=== PATIENT | female | born 1985 | race Caucasian/White ===

== ENCOUNTER 2016-08-26 14:14 | Emergency (ER) | payer BC, MEDICAID ==
[~2016-08-26] VITALS: Ht 170.2 cm; Wt 77.1 kg
[~2016-08-26 14:14] MED LIST: ADDERALL; AMAN100C18 PO; BUSP5TAB59 PO; CETI10CA PO; CLON0.5T3 PO; CYCL10TA9 PO; FAMO-119 PO; FLT05NA16 NSEACH; HYDR-1231 PO; LEVO500T69 PO; METH4TAB PO; NAPR-243 PO; NAPR-689 PO; NORG1TAB30 PO; ONDN4T PO; PARO40TA2 PO; PHEN200T27 PO; PREN1TAB39 PO; QUET100T32 PO; SMXTMP10ML PO; SULF-222 PO; SULF1TAB7 PO; TRAM-21 PO; TRAM50TA2 PO; TRZ100T PO; [UNRECOGNIZED DRUG - CODE] PO; minipress; plavix PO; seroquel PO
[2016-08-26] MEDS ORDERED: NS IV 1000 ML 1,000 ML IV ONE (14:35)
[2016-08-26 16:11] LABS: BILIRUBIN,URINE NEGATIVE (NEGATIVE); KETONES,URINE NEGATIVE (NEGATIVE); LEUKOCYTE ESTERASE ,URINE NEGATIVE (NEGATIVE); NITRITE,URINE NEGATIVE (NEGATIVE); PH,URINE 7 (5-9); PROTEIN,URINE NEGATIVE (NEGATIVE); UROBILINOGEN,URINE NORMAL (NORMAL)
--- NOTE | 2016-08-26 16:11 | ED GU-Female ---
General Chief Complaint: General Problems/Pain Stated Complaint: DIZZY/LIGHTHEADED POSITIVE PREG TEST Nursing Triage Note: AMB TO ROOM IS PREG UNSURE HOW FAR ALONG SHE IS LMP NARGIS HAS BEEN DIZZY WITH NAUSEA. Nursing Sepsis Screen: No Definite Risk Source: patient Exam Limitations: no limitations History of Present Illness Time seen by provider: 15:45 Initial Comments 31-year-old female patient presents to the emergency department complains of dizziness and nausea 2 days. States she took a test yesterday which was positive, but had approximately 20 tests in the last 2 wks that were negative. Last menstrual period was at the end of June. Denies vaginal bleeding or discharge. Timing/Duration: intermittent, other (2 days) Severity/Quality: moderate Activities at Onset: other Prior Genitourinary Problems: none Sexual Gordo History: less than 2 months ago, single partner Modifying Factors: Worsens With Other (worse with standing from a lying or sitting position) Allergies and Home Medications Allergies Coded Allergies: venlafaxine (Verified Allergy, Mild, 07/23/14) Penicillins (Verified Allergy, Unknown, 01/30/08) Home Medications Nitrofurantoin Monohyd/M-Cryst 100 Mg Capsule #6 1 TAB PO BID Prescribed by: CAROLA MCGUIRE on 08/26/16 8743 Constitutional: No chills, No diaphoresis, dizzinessNo fever, No malaise EENTM: no symptoms reported Respiratory: no symptoms reported Cardiovascular: no symptoms reported Gastrointestinal: No abdominal pain, No constipation, No diarrhea, No hematemesis, loss of appetiteNo melena, nauseaNo vomiting Genitourinary: see HPIdenies burning, denies discharge, denies dysuria, denies frequency, denies flank pain, denies hematuria, denies pain : Yes Musculoskeletal: no symptoms reported Skin: no symptoms reported Psychiatric/Neurological: Denies Headache, Denies Numbness, Denies Paresthesia , Denies Tingling, Denies Weakness All Other Systemes Reviewed Negative Unless Noted: Yes (Negative excepted noted.) Past Oufdtrf-Axtsjq-Zurnrc Hx Patient Social History Alcohol Use: Denies Use Recreational Drug Use: No Smoking Status: Never a Smoker Recent Foreign Travel: No Contact w/Someone Who Travel: No Recent Infectious Disease Expo: No Recent Hopitalizations: Yes (CHILDBIRTH) Immunizations Up To Date Tetanus Booster (TDap): Less than 5yrs Seasonal Allergies Seasonal Allergies: No Surgeries HX Surgeries: Yes (DENTAL EXTRACTIONS, RIGHT FOOT SURGERY X 2) Surgeries: Section, Gallbladder, Orthopedic Respiratory Hx Respiratory Disorders: Yes Respiratory Disorders: Asthma Cardiovascular Hx Cardiac Disorders: Yes ("HOLE IN HEART" PER PT) Cardiac Disorders: Syncope Neurological Hx Neurological Disorders: Yes (PT STATES SHE "PASSES OUT ALOT") Neurological Disorders: Concussion, Parkinson's Disease, Traumatic Brain Injury Reproductive System Hx : 4 Hx Para: 3 Hx Total # of Abortions (Spona: 0 Hx Reproductive Disorders: No Sexually Transmitted Disease: No Female Reproductive Disorders: Denies Genitourinary Hx Genitourinary Disorders: No Gastrointestinal Hx Gastrointestinal Disorders: No Musculoskeletal Hx Musculoskeletal Disorders: No Endocrine Hx Endocrine Disorders: No HEENT HX ENT Disorders: No Cancer Hx Cancer: No Psychosocial Hx Psychiatric Problems: Yes Behavioral Health Disorders: ADD/ADHD, Sleep Difficulties, Anxiety, PTSD, Depression Integumentary HX Skin/Integumentary Disorder: No Blood Transfusions Hx Blood Disorders: No Reviewed Nursing Assessment Reviewed/Agree w Nursing PMH: Yes Family Medical History Significant Family History: No Pertinent Family Hx Physical Exam Vital Signs Vital Sign - Last 12Hours 08/26/16 14:26 Temp 98.7 Pulse 84 Resp 18 B/P 130/82 Pulse Ox 98 O2 Delivery Room Air Capillary Refill : Less Than 3 Seconds General Appearance: WD/WN no apparent distress HEENT: PERRL/EOMI pharynx normal Neck: supple normal inspection Cardiovascular: normal peripheral pulses regular rate, rhythm no edema no murmur Respiratory: lungs clear normal breath sounds no respiratory distress Gastrointestinal: normal bowel sounds non tender soft no organomegalyNo distended Back: normal inspection Extremities: normal inspection no pedal edema normal capillary refill 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 no motor/sensory deficits alert normal mood/affect oriented x 3 Skin: normal color warm/dry Progress/Results/Core Measures Results/Orders Lab Results Laboratory Tests Test 08/26/16 16:00 Range/Units Alanine Aminotransferase (ALT/SGPT) 29 0-55 U/L Albumin 3.7 3.2-4.5 G/DL Alkaline Phosphatase 55 40-136 U/L Anion Gap 8 5-14 MMOL/L Aspartate Amino Transf (AST/SGOT) 24 5-34 U/L BUN/Creatinine Ratio 19 Basophils # (Auto) 0.0 0.0-0.1 10^3/uL Basophils (%) (Auto) 1 0-10 % Blood Urea Nitrogen 15 7-18 MG/DL Calcium Level 8.7 8.5-10.1 MG/DL Carbon Dioxide Level 25 21-32 MMOL/L Chloride Level 106 98-107 MMOL/L Creatinine 0.77 0.60-1.30 MG/DL Eosinophils # (Auto) 0.1 0.0-0.3 10^3/uL Eosinophils (%) (Auto) 2 0-10 % Estimat Glomerular Filtration Rate > 60 Free Thyroxine 0.90 0.70-1.48 NG/DL Glucose Level 82 70-105 MG/DL Hematocrit 38 35-52 % Hemoglobin 13.2 11.5-16.0 G/DL Human Chorionic Gonadotropin, Quant 1496 H <5 MIU/ML Lymphocytes # (Auto) 1.8 1.0-4.0 X 10^3 Lymphocytes (%) (Auto) 28 12-44 % Mean Corpuscular Hemoglobin 30 25-34 PG Mean Corpuscular Hemoglobin Concent 35 32-36 G/DL Mean Corpuscular Volume 86 80-99 FL Mean Platelet Volume 9.3 7.4-10.4 FL Monocytes # (Auto) 0.7 0.0-1.0 X 10^3 Monocytes (%) (Auto) 11 0-12 % Neutrophils # (Auto) 3.8 1.8-7.8 X 10^3 Neutrophils (%) (Auto) 59 42-75 % Platelet Count 238 130-400 10^3/uL Potassium Level 3.5 L 3.6-5.0 MMOL/L Red Blood Count 4.37 4.35-5.85 10^6/uL Red Cell Distribution Width 13.5 10.0-14.5 % Serum Alcohol < 10 <10 MG/DL Sodium Level 139 135-145 MMOL/L TSH [place] Testing 0.26 L 0.35-4.94 UIU/ML Total Bilirubin 0.5 0.1-1.0 MG/DL Total Protein 6.4 6.4-8.2 G/DL Ur Tricyclic Antidepressants Screen NEGATIVE NEGATIVE Urine Amorphous Sediment LARGE STEPHANIE URATES H /LPF Urine Amphetamines Screen POSITIVE H NEGATIVE Urine Bacteria FEW H /HPF Urine Barbiturates Screen NEGATIVE NEGATIVE Urine Benzodiazepines Screen NEGATIVE NEGATIVE Urine Bilirubin NEGATIVE NEGATIVE Urine Cannabinoids Screen NEGATIVE NEGATIVE Urine Casts NONE /LPF Urine Clarity SLIGHTLY CLOUDY Urine Cocaine Screen NEGATIVE NEGATIVE Urine Color YELLOW Urine Crystals NONE /LPF Urine Culture Indicated NO Urine Glucose (UA) NEGATIVE NEGATIVE Urine Ketones NEGATIVE NEGATIVE Urine Leukocyte Esterase NEGATIVE NEGATIVE Urine Methadone Screen NEGATIVE NEGATIVE Urine Methamphetamines Screen NEGATIVE NEGATIVE Urine Mucus NEGATIVE /LPF Urine Nitrite NEGATIVE NEGATIVE Urine Opiates Screen NEGATIVE NEGATIVE Urine Oxycodone Screen NEGATIVE NEGATIVE Urine Phencyclidine Screen NEGATIVE NEGATIVE Urine Propoxyphene Screen NEGATIVE NEGATIVE Urine Protein NEGATIVE NEGATIVE Urine RBC NONE /HPF Urine RBC (Auto) NEGATIVE NEGATIVE Urine Specific [place] 1.015 L 1.016-1.022 Urine Squamous Epithelial Cells 5-10 /HPF Urine Urobilinogen NORMAL NORMAL MG/DL Urine WBC 0-2 /HPF Urine pH 7 5-9 White Blood Count 6.5 4.3-11.0 10^3/uL My Orders Orders-CAROLA MCGUIRE Alcohol (08/26/16 14:35) Cbc With Automated Diff (08/26/16 14:35) Comprehensive Metabolic Panel (08/26/16 14:35) Drug Screen Stat (Urine) (08/26/16 14:35) Thyroid Analyzer (08/26/16 14:35) Ua Culture If Indicated (08/26/16 14:35) Saline Lock/Iv-Start (08/26/16 14:35) Ekg Tracing (08/26/16 14:35) Ns Iv 1000 Ml (Sodium Chloride 0.9%) (08/26/16 14:35) Hcg,Quantitative (08/26/16 16:11) Free T4 (Free Thyroxine) (08/26/16 16:00) Medications Given in ED Current Medications Medications Dose Ordered Sig/Zoey Route Start Time Stop Time Status Last Admin Dose Admin Sodium Chloride 1,000 ml @ 0 mls/hr Q0M ONCE IV 08/26/16 14:35 08/26/16 14:37 DC 08/26/16 16:07 1,000 MLS/HR Vital Signs/I&O Vital Sign - Last 12Hours 08/26/16 08/26/16 14:26 17:59 Temp 98.7 Pulse 84 86 Resp 18 18 B/P 130/82 Pulse Ox 98 98 O2 Delivery Room Air Intake and Output 08/27/16 00:00 Intake Total 1000 ml Balance 1000 ml Blood Pressure Mean: 98 ECG Initial ECG Impression Date: Aug 26, 2016 Initial ECG Impression Time: 15:16 Initial ECG Rate: 78 Initial ECG Rhythm: Normal Sinus Initial ECG Intervals: Normal Initial ECG Impression: Normal Initial ECG Comparisson: Unchanged Comment Sinus rhythm. No STEMI or arrhythmia noted. ECG reviewed and discussed with Drew Hough MD. Departure Communication Progress Notes Laboratory findings and EKG findings discussed with the patient. Patient reports feeling much better at this time. Denies dizziness. Patient alert and oriented 3, no acute distress. Plan for discharge to home with follow-up as an outpatient with [facility] for recheck, status seeing obstetric care, repeat laboratory testing, and palpation baseline ultrasound. All return precautions were discussed with the patient as described in the discharge instructions of this report. Patient voices understanding and agrees with the treatment plan. Patient ambulated from the emergency department without difficulty. Patient case discussed with Drew Hough MD. He agrees with the plan of care. Impression Impression: Primary Impression: Dizziness Additional Impressions: Qualified Code: Z3A.01 - Less than 8 weeks gestation of Abnormal thyroid function test Disposition: HOME, SELF-CARE Condition: Improved Departure-Patient Inst. Decision time for Depature: 16:47 Referrals: [facility]) Primary Care Physician Patient Instructions: Amphetamine, Nutrition Before and During , Symptoms Add. Discharge Instructions: All discharge instructions reviewed with patient and/or family. Voiced understanding. Drink plenty of fluids. Tylenol [id number] as needed for headache or pain. Follow-up with Ruth Todd APRN at [facility] for recheck, repeat labs, and to establish obstetrical care. Call tomorrow morning for appointment time. Return to the emergency department for worsened dizziness, fever, headache, chest pain, vomiting, decreased urination, or any other concerns. Scripts Nitrofurantoin Monohyd/M-Cryst (Macrobid 100 mg Capsule)100 Mg Capsule1 Tab PO BID #6 CAP Ref 0 Prov:CAROLA MCGUIRE 08/26/16 Work/School Note: Work Release Form Date Seen in the Emergency Department: Aug 26, 2016 Return to Work: Aug 28, 2016 CAROLA MCGUIRE Aug 26, 2016 16:11
[2016-08-26 16:12] LABS: BASOPHILS % (AUTO) 1 % (0-10); EOSINOPHILS # (AUTO) 0.1 10^3/uL (0.0-0.3); EOSINOPHILS % (AUTO) 2 % (0-10); LYMPHOCYTES # (AUTO) 1.8 X 10^3 (1.0-4.0); LYMPHOCYTES % (AUTO) 28 % (12-44); MEAN CORPUSCULAR HEMOGLOBIN 30 PG (25-34); MEAN CORPUSCULAR HGB CONC 35 G/DL (32-36); MEAN CORPUSCULAR VOLUME 86 FL (80-99); MEAN PLATELET VOLUME 9.3 FL (7.4-10.4); MONOCYTES # (AUTO) 0.7 X 10^3 (0.0-1.0); MONOCYTES % (AUTO) 11 % (0-12); NEUTROPHILS # (AUTO) 3.8 X 10^3 (1.8-7.8); NEUTROPHILS % (AUTO) 59 % (42-75); PLATELET COUNT 238 10^3/uL (130-400); RED BLOOD COUNT 4.37 10^6/uL (4.35-5.85); RED CELL DISTRIBUTION WIDTH 13.5 % (10.0-14.5); WHITE BLOOD COUNT 6.5 10^3/uL (4.3-11.0)
[2016-08-26 16:26] LABS: WBC,URINE 0-2 /HPF
[2016-08-26 16:33] LABS: ALANINE AMINOTRANSFERASE 29 U/L (0-55); ALBUMIN 3.7 G/DL (3.2-4.5); ANION GAP 8 MMOL/L (5-14); ASPARTATE AMINO TRANSFERASE 24 U/L (5-34); BILIRUBIN,TOTAL 0.5 MG/DL (0.1-1.0); BLOOD UREA NITROGEN 15 MG/DL (7-18); BUN/CREATININE RATIO 19; CALCIUM 8.7 MG/DL (8.5-10.1); CARBON DIOXIDE 25 MMOL/L (21-32); CHLORIDE 106 MMOL/L (98-107); CREATININE SERUM 0.77 MG/DL (0.60-1.30); GFR ESTIMATED > 60; GLUCOSE 82 MG/DL (70-105); POTASSIUM 3.5 MMOL/L (3.6-5.0); SODIUM 139 MMOL/L (135-145); TOTAL PROTEIN 6.4 G/DL (6.4-8.2)
[2016-08-26 16:35] LABS: ALCOHOL < 10 MG/DL (<10)
[2016-08-26] MEDS ORDERED: NITR-65 PO (17:53)
[2016-08-26 17:59] VITALS: BP 138/75
== END 2016-08-26 17:59 | disposition home or self-care (01) ==
LOC: EDUNIT# 14:14 → ER 14:17
DX: R42 Dizziness and giddiness (principal); Z32.01 Encounter for pregnancy test, result positive; Z3A.01 Less than 8 weeks gestation of pregnancy; R94.6 Abnormal results of thyroid function studies
CPT/HCPCS: 36415; 80053; 80306; 80320; 81000; 84439; 84443; 84702; 85025; 93005; 96360

== ENCOUNTER → 2016-09-14 | Outpatient (CLI) | payer MEDICAID ==
[~2016-09-14] MED LIST changes: +NITR-65 PO
--- NOTE | 2016-09-14 16:10 | Diagnostic Imaging Report ---
First trimester OB ultrasound. INDICATION: Dating. FINDINGS: There is a normal-appearing single intrauterine . An embryo is seen with cardiac activity at 146 beats per minute. The crown-rump length is at 7 weeks and 4 days. ANISH is 04/29/17. The left ovary appears unremarkable. The right ovary is obscured by bowel gas. IMPRESSION: Live single intrauterine . Dictated by: Dictated on workstation # [id number]
== END ==
LOC: RAD 15:34
PROVIDERS: ATTEND Family Medicine
DX: Z34.81 Encounter for supervision of other normal pregnancy, first trimester (principal)
CPT/HCPCS: 76801

== ENCOUNTER → 2016-12-11 | Outpatient (CLI) | payer MEDICAID ==
--- NOTE | 2016-12-11 13:44 | Diagnostic Imaging Report ---
INDICATION: OB ultrasound for dates. TECHNIQUE: Multiple real-time grayscale images were obtained over the gravid uterus. COMPARISON: 09/14/2016 FINDINGS: There is a single live intrauterine fetus which is currently transverse with head to maternal right. Fetus is active. heart beat of 147 beats per minute. Placenta is posterior with no evidence of abruption or previa. The amniotic fluid index is normal. anatomical survey is normal. Biometrical measurements are as follows: Biparietal 4.6 cm, age 20 weeks 0 days. Head circumference 17.8 cm, age 20 weeks 3 days. Abdominal circumference 16.2 cm, age 21 weeks 3 days. Femur length 3.4 cm, age 20 weeks 6 days. Sonographic estimate age: 20 weeks 5 days. Sonographic estimated date of delivery: 04-25-17. Estimated Weight: 387 gm (+/- 57 gm). LMP percentile: 86%. heart rate: 147 beats per minute. number: 1 of 1. IMPRESSION: 1. The fetus is currently average for 20 weeks 5 days live intrauterine by biometric measurements. Previous ultrasound indicates 20 weeks 1 day gestation. There has been normal growth in the interim. 2. No abnormality is demonstrated. Dictated by: Dictated on workstation # [id number]
== END ==
LOC: RAD 11:53
PROVIDERS: ATTEND Family Medicine
DX: Z36 Encounter for antenatal screening of mother (principal); Z3A.20 20 weeks gestation of pregnancy
CPT/HCPCS: 76805

== ENCOUNTER 2016-12-31 12:51 | Emergency (ER) | payer OTHER, MEDICAID ==
[~2016-12-31] VITALS: Ht 170.2 cm; Wt 77.1 kg
--- OUTSIDE RECORDS SUMMARY | 2016-12-31 12:58 | XMS REPORT ---
Author Author [facility] Organization eClinical[employer] Address Unknown Phone Unavailable Care Team Providers Care Designer Writer Name Role Phone [facility] CP Unavailable Allergies No Known Allergies Problems Problem Type Condition ICD-9 Code Onset Dates Condition Status Problem Encounter for long-term (current) use of other medications V58.69 Active Problem Insomnia, unspecified 780.52 Active Problem Depressive disorder, not elsewhere classified 311 Active Assessment Post traumatic stress disorder (PTSD) 309.81 Active Medications No Known Medications Procedures Procedure Coding System Code Date CARE COORDINATION CPT-4 S0281 Feb 26, 2015 Results No Known Results Summary Purpose eClinicalWorks Submission
--- OUTSIDE RECORDS SUMMARY | 2016-12-31 12:58 | XMS REPORT ---
Author Author SHELBY MIRAMONTES Organization [facility] Address [address] [place] [address] Care Team Providers Care Egg Smeller Name Role Phone SHELBY MIRAMONTES Unavailable PROBLEMS Type Condition ICD9-CM Code CQL94-OZ Code Onset Dates Condition Status SNOMED Code Assessment Acute pansinusitis, recurrence not specified J01.40 Feb, Active 2792131 Problem Umbilical hernia K42.9 Active 184954725 Problem Anxiety F41.9 Active 73813162 Problem Overweight E66.3 Active 681364727 Problem Dyshidrosis L30.1 Active 186363271 Problem Depressive disorder F32.9 Active 51213016 Problem Insomnia, unspecified G47.00 Active 681991208 ALLERGIES Substance Reaction Event Type Date Status Penicillin V Potassium Unknown Drug Allergy Feb, Active Effexor Unknown Drug Allergy Feb, Active Detergents And Soaps Unknown Non Drug Allergy Feb, Active SOCIAL HISTORY No smoking Hx information available PLAN OF CARE VITAL SIGNS Height 68 in 2016-03-03 Weight 178.4 lbs 2016-03-03 Heart Rate 84 bpm 2016-03-03 Respiratory Rate 20 2016-03-03 BMI 27.12 kg/m2 2016-03-03 Blood pressure systolic 114 mmHg 2016-03-03 Blood pressure diastolic 64 mmHg 2016-03-03 MEDICATIONS Medication Instructions Dosage Frequency Start Date End Date Duration Status Flonase 50 MCG/ACT Nasally Once a day 1 spray in each nostril 24h 24 Feb, 2015 30 day(s) Active Clobetasol Propionate 0.05 % Externally Twice a day 1 application to affected area 12h 10 May, 2015 Active Diclofenac Sodium 75 MG Orally 2 times a day 1 tablet 12h Active BusPIRone HCl 10 mg Orally Twice a day prn anxiety 1 tablet Active Fluticasone Propionate 50 MCG/ACT Nasally Once a day 1-2 spray in each nostril 24h 13 Feb, 2016 7 days Active Cyclobenzaprine HCl 10 mg Orally once a day prn 1 tablet Active Bactrim DS 800-160 MG Orally Twice a day 1 tablet 12h 13 Feb, 2016Feb 10 day(s) Active RESULTS No Results PROCEDURES Procedure Date Ordered Related Diagnosis Body Site Office Visit, Est Pt., Level 3 Mar 03, 2016 IMMUNIZATIONS No Known Immunizations
--- OUTSIDE RECORDS SUMMARY | 2016-12-31 12:58 | XMS REPORT ---
Author Author GAYLE RICO [facility] eClinicalWorks Address Unknown Phone Unavailable Care Team Providers Care Diagram Clerk Name Role Phone GAYLE RICO Unavailable Allergies, Adverse Reactions, Alerts Substance Reaction Event Type Penicillin V Potassium Info Not Available Drug Allergy Effexor Info Not Available Drug Allergy Detergents And Soaps Info Not Available Non Drug Allergy Problems Problem Type Condition Code Onset Dates Condition Status Problem Encounter for long-term (current) use of other medications V58.69 Active Problem Insomnia, unspecified 780.52 Active Problem Depressive disorder, not elsewhere classified 311 Active Assessment Bronchitis 490 Active Assessment Otitis media, right 382.9 Active Medications Medication Code System Code Instructions Start Date End Date Status Dosage Levaquin [facility] [address]-44 500 MG Orally Once a day Mar 19, 2015 Mar 29, 2015 1 tablet Promethazine-Codeine [facility] [address]-37 6.25-10 MG/5ML Orally every 6 hrs prn Mar 19, 2015 5 ml as needed Ortho-Cyclen (28) [facility] [address]-81 0.25-35 MG-MCG Orally Once a day December 04, 2014 1 tablet Cyclobenzaprine HCl [facility] [address]-90 10 MG Orally Once a day at hs Apr 29, [address] [facility] [address]-56 40 MG Orally Once a day 1 tablet in the morning Flonase [facility] [address]-92 50 MCG/ACT Nasally Once a day Mar 14, 2015 1 spray in each nostril Seroquel [facility] [address]-51 100 MG Orally Once a day 1.0 tablet at bedtime Amantadine HCl [facility] [address]-21 100 MG Orally Twice a day 1 tablet Diclofenac Sodium [facility] [address]-88 75 MG Orally 2 times a day 1 tablet Trazodone HCl [facility] [address]-09 100 MG Orally Once a day 1 tablet at bedtime BusPIRone HCl [facility] [address]-03 10 MG Orally Twice a day 1 tablet Phentermine HCl [facility] [address]-88 37.5 MG Orally Once a day 1 tablet Procedures Procedure Coding System Code Date THER/PROPH/DIAG INJ, SC/IM CPT-4 04615 Mar 19, 2015 Office Visit, Est Pt., Level 3 CPT-4 50042 Mar 19, 2015 ROCEPHIN 1 GM (IM) CPT-4 J0696 Mar 19, 2015 Vital Signs Date/Time: Mar 19, 2015 Temperature 97.6 F Weight 180.4 lbs Height 68 in BMI 27.43 Index Blood Pressure Diastolic 68 mmHg Blood Pressure Systolic 100 mmHg Cardiac Monitoring Heart Rate 78 bpm Results No Known Results Summary Purpose eClinicalWorks Submission
--- OUTSIDE RECORDS SUMMARY | 2016-12-31 12:58 | XMS REPORT ---
Author Author GAYLE RICO [facility] eClinicalWorks Address Unknown Phone Unavailable Care Team Providers Care Wrestling Coach Name Role Phone GAYLE RICO CP Unavailable Allergies, Adverse Reactions, Alerts Substance Reaction Event Type Penicillin V Potassium Info Not Available Drug Allergy Effexor Info Not Available Drug Allergy Detergents And Soaps Info Not Available Non Drug Allergy Problems Problem Type Condition Code Onset Dates Condition Status Problem Insomnia, unspecified G47.00 Active Problem Overweight E66.3 Active Problem Depressive disorder F32.9 Active Problem Dyshidrosis L30.1 Active Assessment Overweight E66.3 Active Medications Medication Code System Code Instructions Start Date End Date Status Dosage Clobetasol Propionate [facility] [address]-90 0.05 % Externally Twice a day May 30, 2015 1 application to affected area Diclofenac Sodium [facility] [address]-79 75 MG Orally 2 times a day 1 tablet Diethylpropion HCl ER [facility] [address]-08 75 MG Orally Once a day Jul 02, 2015 Jul 30, 2015 1 tablet Flonase [facility] [address]-05 50 MCG/ACT Nasally Once a day Mar 14, 2015 1 spray in each nostril Paxil [facility] [address]-79 40 MG Orally Once a day 1 tablet in the morning BusPIRone HCl [facility] [address]-95 10 MG Orally Twice a day 1 tablet Procedures Procedure Coding System Code Date Office Visit, Est Pt., Level 3 CPT-4 34624 Jul 02, 2015 Vital Signs Date/Time: Jul 02, 2015 Temperature 98.6 F Weight 176.8 lbs Height 68 in BMI 26.88 Index Blood Pressure Diastolic 72 mmHg Blood Pressure Systolic 110 mmHg Cardiac Monitoring Heart Rate 92 bpm Results No Known Results Summary Purpose eClinicalWorks Submission
--- OUTSIDE RECORDS SUMMARY | 2016-12-31 12:58 | XMS REPORT ---
Author Author [facility] Organization eClinicalWorks Address Unknown Phone Unavailable Care Team Providers Care Burlap Bag Sewer Name Role Phone [facility] CP Unavailable Allergies No Known Allergies Problems Problem Type Condition ICD-9 Code Onset Dates Condition Status Problem Encounter for long-term (current) use of other medications V58.69 Active Problem Insomnia, unspecified 780.52 Active Problem Depressive disorder, not elsewhere classified 311 Active Assessment Post traumatic stress disorder 309.81 Active Medications No Known Medications Procedures Procedure Coding System Code Date [facility] CPT-4 S0280 Feb 14, 2015 Results No Known Results Summary Purpose eClinicalWorks Submission
--- OUTSIDE RECORDS SUMMARY | 2016-12-31 12:58 | XMS REPORT ---
Author Author GAYLE RICO [facility] eClinicalWorks Address Unknown Phone Unavailable Care Team Providers Care Stitcher Special Machine Name Role Phone GAYLE RICO Unavailable Allergies, Adverse Reactions, Alerts Substance Reaction Event Type Penicillin V Potassium Info Not Available Drug Allergy Effexor Info Not Available Drug Allergy Detergents And Soaps Info Not Available Non Drug Allergy Problems Problem Type Condition Code Onset Dates Condition Status Assessment Vaginal discharge N89.8 Active Assessment Eye irritation H57.8 Active Problem Anxiety F41.9 Active Problem Depressive disorder F32.9 Active Problem Umbilical hernia K42.9 Active Problem Dyshidrosis L30.1 Active Assessment Overweight E66.3 Active Problem Insomnia, unspecified G47.00 Active Problem Overweight E66.3 Active Medications Medication Code System Code Instructions Start Date End Date Status Dosage Phentermine HCl [facility] [address]-78 37.5 MG Orally Once a day May 12, 2016 Jun 09, 2016 1 tablet Diflucan [facility] [address]-69 150 MG Orally daily May 12, 2016 May 14, 2016 1 tablet Cyclobenzaprine HCl [facility] [address]-17 10 mg Orally once a day prn 1 tablet Flonase [facility] [address]-94 50 MCG/ACT Nasally Once a day Mar 14, 2015 1 spray in each nostril BusPIRone HCl [facility] [address]-94 10 mg Orally Twice a day prn anxiety 1 tablet Aspercreme w/Lidocaine [facility] 39066-14827 4 % Externally 4 times a day Mar as directed Ibuprofen [facility] [address]-98 800 MG Orally Three times a day Apr 13, 2016 May 13, 2016 1 tablet TobraDex [facility] [address]-69 0.3-0.1 % Ophthalmic qid May 12, 2016 1 drop into affected eye Procedures Procedure Coding System Code Date [facility] CPT-4 NOBLL May 12, 2016 No Charge CPT-4 68914 May 12, 2016 KIMBROUGH VAG, DNA, DIR PROBE CPT-4 83288 May 12, 2016 Office Visit, Est Pt., Level 4 CPT-4 14934 May 12, 2016 Vital Signs Date/Time: May 12, 2016 Cardiac Monitoring Heart Rate 80 bpm Weight 183 lbs Height 68 in BMI 27.82 Index Blood Pressure Diastolic 62 mmHg Blood Pressure Systolic 98 mmHg Results Name Result Date Reference Range Unit Abnormality Flag TRICHOMONAS (IN HOUSE) ----TRICHOMONAS negative [id number] ----Control + [id number] ----Lot # [id number] ----Exp date [id number] BACTERIAL VAGINOSIS (IN HOUSE) ----Exp date [id number] ----Control + [id number] ----Lot # [id number] ----RESULTS negative [id number] Summary Purpose eClinicalWorks Submission
--- OUTSIDE RECORDS SUMMARY | 2016-12-31 12:58 | XMS REPORT ---
Author Author GAYLE RICO Organization e[employer] Address Unknown Phone Unavailable Care Team Providers Care Hardwood Floor Refinisher Name Role Phone GAYLE RICO CP Unavailable Allergies No Known Allergies Problems Problem Type Condition Code Onset Dates Condition Status Problem Anxiety F41.9 Active Problem Depressive disorder F32.9 Active Problem Umbilical hernia K42.9 Active Problem Dyshidrosis L30.1 Active Problem Insomnia, unspecified G47.00 Active Problem Overweight E66.3 Active Medications No Known Medications Results No Known Results Summary Purpose eClinicalWorks Submission
--- OUTSIDE RECORDS SUMMARY | 2016-12-31 12:58 | XMS REPORT ---
Author Author GAYLE RICO eClinical[employer] Address Unknown Phone Unavailable Care Team Providers Care Spot Washer Name Role Phone GAYLE RICO Unavailable Allergies, Adverse Reactions, Alerts Substance Reaction Event Type Penicillin V Potassium Info Not Available Drug Allergy Effexor Info Not Available Drug Allergy Detergents And Soaps Info Not Available Non Drug Allergy Problems Problem Type Condition Code Onset Dates Condition Status Problem Dyshidrosis L30.1 Active Problem Depressive disorder, not elsewhere classified 311 Active Problem Overweight E66.3 Active Assessment Overweight E66.3 Active Assessment Dyshidrosis L30.1 Active Problem Encounter for long-term (current) use of other medications V58.69 Active Problem Insomnia, unspecified 780.52 Active Medications Medication Code System Code Instructions Start Date End Date Status Dosage Phentermine HCl [facility] [address]-65 37.5 MG Orally Once a day 1 tablet Diclofenac Sodium [facility] [address]-18 75 MG Orally 2 times a day 1 tablet Paxil [facility] [address]-73 40 MG Orally Once a day 1 tablet in the morning Flonase [facility] [address]-19 50 MCG/ACT Nasally Once a day Mar 14, 2015 1 spray in each nostril Ortho-Cyclen (28) [facility] [address]-46 0.25-35 MG-MCG Orally Once a day December 04, 2014 1 tablet Seroquel [facility] [address]-91 100 MG Orally Once a day 1.0 tablet at bedtime Amantadine HCl [facility] [address]-85 100 MG Orally Twice a day 1 tablet BusPIRone HCl [facility] [address]-66 10 MG Orally Twice a day 1 tablet Clobetasol Propionate [facility] [address]-40 0.05 % Externally Twice a day May 30, 2015 1 application to affected area Procedures Procedure Coding System Code Date Office Visit, Est Pt., Level 3 CPT-4 34863 May 30, 2015 Vital Signs Date/Time: May 30, 2015 Temperature 98.0 F Weight 174.1 lbs Height 68 in BMI 26.47 Index Blood Pressure Diastolic 72 mmHg Blood Pressure Systolic 114 mmHg Cardiac Monitoring Heart Rate 82 bpm Results No Known Results Summary Purpose eClinicalWorks Submission
--- OUTSIDE RECORDS SUMMARY | 2016-12-31 12:59 | XMS REPORT ---
Author Author GAYLE RICO [facility] eClinicalWorks Address Unknown Phone Unavailable Care Team Providers Care Clinical Trial Assistant Name Role Phone GAYLE RICO Unavailable Allergies, [...] disorder, not elsewhere classified 311 Active Assessment Overweight E66.3 Active Medications Medication Code System Code Instructions Start Date End Date Status Dosage Diclofenac Sodium [facility] [address]-69 75 MG Orally 2 times a day 1 tablet Ortho-Cyclen (28) [facility] [address]-34 0.25-35 MG-MCG Orally Once a day December 04, 2014 1 tablet Flonase [facility] [address]-41 50 MCG/ACT Nasally Once a day Mar 14, 2015 1 spray in each nostril BusPIRone HCl [facility] [address]-73 10 MG Orally Twice a day 1 tablet Trazodone HCl [facility] [address]-63 100 MG Orally Once a day 1 tablet at bedtime Seroquel [facility] [address]-11 100 MG Orally Once a day 1.0 tablet at bedtime Promethazine-Codeine [facility] [address]-66 6.25-10 MG/5ML Orally every 6 hrs prn Mar 19, 2015 5 ml as needed Phentermine HCl [facility] [address]-11 37.5 MG Orally Once a day 1 tablet Paxil [facility] [address]-10 40 MG Orally Once a day 1 tablet in the morning Procedures Procedure Coding System Code Date Office Visit, Est Pt., Level 3 CPT-4 18859 Apr 30, 2015 Vital Signs Date/Time: Apr 30, 2015 Temperature 98.1 F Weight 179.4 lbs Height 68 in BMI 27.27 Index Blood Pressure Diastolic 64 mmHg Blood Pressure Systolic 104 mmHg Cardiac Monitoring Heart Rate 84 bpm Results No Known Results Summary Purpose eClinicalWorks Submission
--- OUTSIDE RECORDS SUMMARY | 2016-12-31 12:59 | XMS REPORT ---
Author Author [facility], [facility] eClinicalWorks Address Unknown Phone Unavailable Care Team Providers Care Master Cook Name Role Phone [facility], [facility] CP Unavailable Allergies No Known Allergies Problems Problem Type Condition Code Onset Dates Condition Status Problem Insomnia, unspecified G47.00 Active Problem Overweight E66.3 Active Problem Depressive disorder F32.9 Active Problem Dyshidrosis L30.1 Active Assessment Post-traumatic stress disorder, unspecified F43.10 Active Medications No Known Medications Procedures Procedure Coding System Code Date [facility] CPT-4 S0280 Jul 19, 2015 Results No Known Results Summary Purpose eClinicalWorks Submission
--- OUTSIDE RECORDS SUMMARY | 2016-12-31 12:59 | XMS REPORT ---
Author Author [facility], [facility] eClinicalWorks Address Unknown Phone Unavailable Care Team Providers Care Memorial Adviser Name Role Phone [facility], [facility] CP Unavailable Allergies No Known Allergies Problems Problem Type Condition Code Onset Dates Condition Status Problem Encounter for long-term (current) use of other medications V58.69 Active Problem Insomnia, unspecified 780.52 Active Problem Depressive disorder, not elsewhere classified 311 Active Assessment Post-traumatic stress disorder, chronic F43.12 Active Medications No Known Medications Procedures Procedure Coding System Code Date HE[facility] PROMOTION CPT-4 S0280 May 17, 2015 Results No Known Results Summary Purpose eClinicalWorks Submission
--- OUTSIDE RECORDS SUMMARY | 2016-12-31 12:59 | XMS REPORT ---
Author Author GAYLE RICO Organization [employer] Address Unknown Phone Unavailable Care Team Providers Care Line Clearance Foreman Name Role Phone GAYLE RICO CP Unavailable [...] Date End Date Status Dosage Clobetasol Propionate [facility] [address]-45 0.05 % Externally Twice a day May 30, 2015 1 application to affected area Flonase [facility] [address]-80 50 MCG/ACT Nasally Once a day Mar 14, 2015 1 spray in each nostril BusPIRone HCl [facility] [address]-03 10 MG Orally Twice a day 1 tablet Diethylpropion HCl ER [facility] [address]-04 75 MG Orally Once a day Jul 02, 2015 1 tablet Paxil [facility] [address]-40 40 MG Orally Once a day 1 tablet in the morning Diclofenac Sodium [facility] [address]-87 75 MG Orally 2 times a day 1 tablet Procedures Procedure Coding System Code Date Office Visit, Est Pt., Level 3 CPT-4 27884 Aug 01, 2015 Vital Signs Date/Time: Aug 01, 2015 Temperature 98.7 F Weight 181.9 lbs Height 68 in BMI 27.65 Index Blood Pressure Diastolic 70 mmHg Blood Pressure Systolic 122 mmHg Cardiac Monitoring Heart Rate 82 bpm Results No Known Results Summary Purpose eClinicalWorks Submission
--- OUTSIDE RECORDS SUMMARY | 2016-12-31 12:59 | XMS REPORT ---
Author Author GAYLE RICO Organization eClinicalWorks Address Unknown Phone Unavailable Care Team Providers Care Estimator Lumber Name Role Phone GAYLE RICO CP Unavailable [...]
--- OUTSIDE RECORDS SUMMARY | 2016-12-31 12:59 | XMS REPORT ---
Author Author [facility], [facility] eClinicalWorks Address Unknown Phone Unavailable Care Team Providers Care Garage Worker Name Role Phone [facility], [facility] CP Unavailable Allergies No Known Allergies Problems Problem Type Condition Code Onset Dates Condition Status Problem Dyshidrosis L30.1 Active Problem Depressive disorder, not elsewhere classified 311 Active Problem Overweight E66.3 Active Assessment Post-traumatic stress disorder, unspecified F43.10 Active Problem Encounter for long-term (current) use of other medications V58.69 Active Problem Insomnia, unspecified 780.52 Active Medications No Known Medications Procedures Procedure Coding System Code Date HE[facility] PROMOTION CPT-4 S0280 May 30, 2015 Results No Known Results Summary Purpose eClinicalWorks Submission
--- OUTSIDE RECORDS SUMMARY | 2016-12-31 13:00 | XMS REPORT ---
Author Author REYNALDO GUTIERREZ [facility] eClinicalWorks Address Unknown Phone Unavailable Care Team Providers Care Carpenter Mold Name Role Phone REYNALDO GUTIERREZ CP Unavailable Allergies, Adverse Reactions, Alerts Substance Reaction Event Type Penicillin V Potassium Info Not Available Drug Allergy Effexor Info Not Available Drug Allergy Detergents And Soaps Info Not Available Non Drug Allergy Problems Problem Type Condition Code Onset Dates Condition Status Problem Insomnia, unspecified G47.00 Active Problem Overweight E66.3 Active Problem Depressive disorder F32.9 Active Problem Dyshidrosis L30.1 Active Assessment Umbilical hernia K42.9 Active Medications Medication Code System Code Instructions Start Date End Date Status Dosage Cyclobenzaprine HCl [facility] [address]-87 10 MG Orally once a day 1 tablet BusPIRone HCl [facility] [address]-79 10 MG Orally Twice a day 1 tablet Clobetasol Propionate [facility] [address]-77 0.05 % Externally Twice a day May 30, 2015 1 application to affected area Diethylpropion HCl ER [facility] [address]-66 75 MG Orally Once a day 1 tablet Flonase [facility] [address]-39 50 MCG/ACT Nasally Once a day Mar 14, 2015 1 spray in each nostril Diclofenac Sodium [facility] [address]-98 75 MG Orally 2 times a day 1 tablet Procedures Procedure Coding System Code Date Office Visit, Est Pt., Level 2 CPT-4 08792 October 08, 2015 Vital Signs Date/Time: October 08, 2015 Temperature 99.6 F Weight 182.6 lbs Height 68 in BMI 27.76 Index Blood Pressure Diastolic 70 mmHg Blood Pressure Systolic 114 mmHg Cardiac Monitoring Heart Rate 72 bpm Results No Known Results Summary Purpose eClinicalWorks Submission
--- OUTSIDE RECORDS SUMMARY | 2016-12-31 13:00 | XMS REPORT ---
Author Author CHRISTIANO JUDD Organization eClinicalWorks Address Unknown Phone Unavailable Care Team Providers Care Health Care Consultant Name Role Phone CHRISTIANO JUDD CP Unavailable Allergies, Adverse Reactions, Alerts Substance Reaction Event Type Penicillin V Potassium Info Not Available Drug Allergy Effexor Info Not Available Drug Allergy Detergents And Soaps Info Not Available Non Drug Allergy Problems Problem Type Condition Code Onset Dates Condition Status Problem Anxiety F41.9 Active Problem Depressive disorder F32.9 Active Problem Umbilical hernia K42.9 Active Problem Dyshidrosis L30.1 Active Assessment Muscle strain of right shoulder, initial encounter S46.911A Active Problem Insomnia, unspecified G47.00 Active Problem Overweight E66.3 Active Medications Medication Code System Code Instructions Start Date End Date Status Dosage Aspercreme w/Lidocaine [facility] [address] 4 % Externally 4 times a day Mar as directed Flonase [facility] [address]-23 50 MCG/ACT Nasally Once a day Mar 14, 2015 1 spray in each nostril Ibuprofen [facility] [address]-08 800 MG Orally Three times a day Apr 13, 2016 May 13, 2016 1 tablet BusPIRone HCl [facility] [address]-89 10 mg Orally Twice a day prn anxiety 1 tablet Clobetasol Propionate [facility] [address]-40 0.05 % Externally Twice a day May 30, 2015 1 application to affected area Cyclobenzaprine HCl [facility] [address]-03 10 mg Orally once a day prn 1 tablet Procedures Procedure Coding System Code Date Office Visit, Est Pt., Level 3 CPT-4 15037 Apr 13, 2016 Vital Signs Date/Time: Apr 13, 2016 Cardiac Monitoring Heart Rate 62 bpm Weight 183.6 lbs Height 68 in BMI 27.91 Index Blood Pressure Diastolic 70 mmHg Blood Pressure Systolic 114 mmHg Results No Known Results Summary Purpose eClinicalWorks Submission
--- OUTSIDE RECORDS SUMMARY | 2016-12-31 13:00 | XMS REPORT ---
Author Author GAYLE RICO [facility] eClinicalWorks Address Unknown Phone Unavailable Care Team Providers Care Maintenance Scheduler Name Role Phone GAYLE RICO CP Unavailable Allergies, Adverse Reactions, Alerts Substance Reaction Event Type Penicillin V Potassium Info Not Available Drug Allergy Effexor Info Not Available Drug Allergy Detergents And Soaps Info Not Available Non Drug Allergy Problems Problem Type Condition ICD-9 Code Onset Dates Condition Status Problem Encounter for long-term (current) use of other medications V58.69 Active Problem Insomnia, unspecified 780.52 Active Problem Depressive disorder, not elsewhere classified 311 Active Assessment Weight gain 783.1 Active Assessment Back pain 724.5 Active Medications Medication Code System Code Instructions Start Date End Date Status Dosage Diclofenac Sodium [facility] [address]-20 75 MG Orally 2 times a day 1 tablet Trazodone HCl [facility] [address]-93 100 MG Orally Once a day 1 tablet at bedtime Paxil [facility] [address]-30 40 MG Orally Once a day 1 tablet in the morning Cyclobenzaprine HCl [facility] [address]-67 10 MG Orally Once a day at hs Apr 29, 2015 1 tablet Phentermine HCl [facility] [address]-44 37.5 MG Orally Once a day 1 tablet Ortho-Cyclen (28) [facility] [address]-04 0.25-35 MG-MCG Orally Once a day December 04, 2014 1 tablet Seroquel [facility] [address]-73 100 MG Orally Once a day 1.0 tablet at bedtime Amantadine HCl [facility] [address]-96 100 MG Orally Twice a day 1 tablet BusPIRone HCl [facility] [address]-26 10 MG Orally Twice a day 1 tablet Procedures Procedure Coding System Code Date Office Visit, Est Pt., Level 3 CPT-4 02125 Feb 28, 2015 Vital Signs Date/Time: Feb 28, 2015 Temperature 98.6 F Weight 174.4 lbs Height 68 in BMI 26.51 Index Blood Pressure Diastolic 60 mmHg Blood Pressure Systolic 100 mmHg Cardiac Monitoring Heart Rate 72 bpm Results No Known Results Summary Purpose eClinicalWorks Submission
--- OUTSIDE RECORDS SUMMARY | 2016-12-31 13:00 | XMS REPORT ---
Author Author GAYLE RICO [facility] eClinicalWorks Address Unknown Phone Unavailable Care Team Providers Care Varnish Maker Helper Name Role Phone GAYLE RICO Unavailable Allergies, [...] disorder, not elsewhere classified 311 Active Assessment Other obesity due to excess calories E66.09 Active Assessment Low back pain M54.5 Active Medications Medication Code System Code Instructions Start Date End Date Status Dosage Flonase [facility] [address]-51 50 MCG/ACT Nasally Once a day Mar 14, 2015 1 spray in each nostril Amantadine HCl [facility] [address]-31 100 MG Orally Twice a day 1 tablet Diclofenac Sodium [facility] [address]-62 75 MG Orally 2 times a day 1 tablet Trazodone HCl [facility] [address]-77 100 MG Orally Once a day 1 tablet at bedtime Promethazine-Codeine [facility] [address]-86 6.25-10 MG/5ML Orally every 6 hrs prn Mar 19, 2015 5 ml as needed Paxil [facility] [address]-30 40 MG Orally Once a day 1 tablet in the morning Ortho-Cyclen (28) [facility] [address]-91 0.25-35 MG-MCG Orally Once a day December 04, 2014 1 tablet Cyclobenzaprine HCl [facility] [address]-36 10 MG Orally Once a day at hs Apr 29, 2015 1 tablet Phentermine HCl [facility] [address]-28 37.5 MG Orally Once a day 1 tablet BusPIRone HCl [facility] [address]-01 10 MG Orally Twice a day 1 tablet [address] [facility] [address]-56 500 MG Orally Once a day Mar 19, 2015 Mar 29, 2015 1 [address]eroquel [facility] [address]-24 100 MG Orally Once a day 1.0 tablet at bedtime Procedures Procedure Coding System Code Date Office Visit, Est Pt., Level 3 CPT-4 42140 Mar 28, 2015 Vital Signs Date/Time: Mar 28, 2015 Temperature 99.2 F Weight 178.1 lbs Height 68 in BMI 27.08 Index Blood Pressure Diastolic 62 mmHg Blood Pressure Systolic 118 mmHg Cardiac Monitoring Heart Rate 92 bpm Results No Known Results Summary Purpose eClinicalWorks Submission
--- OUTSIDE RECORDS SUMMARY | 2016-12-31 13:00 | XMS REPORT ---
Author Author DAYSI SWANSON eClinicalWorks Address Unknown Phone Unavailable Care Team Providers Care Client Experience Administrator Name Role Phone DAYSI SWANSON Unavailable Allergies, Adverse Reactions, Alerts Substance Reaction Event Type Penicillin V Potassium Info Not Available Drug Allergy Effexor Info Not Available Drug Allergy Detergents And Soaps Info Not Available Non Drug Allergy Problems Problem Type Condition Code Onset Dates Condition Status Assessment Routine screening for STI (sexually transmitted infection) Z11.3 Active Assessment Unprotected sexual intercourse Z72.51 Active Problem Insomnia, unspecified G47.00 Active Problem Overweight E66.3 Active Problem Depressive disorder F32.9 Active Assessment Oral contraceptive pill surveillance Z30.41 Active Assessment Encounter for counseling regarding contraception Z30.9 Active Problem Dyshidrosis L30.1 Active Assessment Irregular menses N92.6 Active Medications Medication Code System Code Instructions Start Date End Date Status Dosage BusPIRone HCl [facility] [address]-19 10 MG Orally Twice a day 1 tablet Paxil [facility] [address]-80 40 MG Orally Once a day 1 tablet in the morning Phentermine HCl [facility] [address]-89 37.5 MG Orally Once a day 1 tablet Diclofenac Sodium [facility] [address]-68 75 MG Orally 2 times a day 1 tablet Flonase [facility] [address]-53 50 MCG/ACT Nasally Once a day Mar 14, 2015 1 spray in each nostril Clobetasol Propionate [facility] [address]-58 0.05 % Externally Twice a day May 30, 2015 1 application to affected area Procedures Procedure Coding System Code Date CHORIONIC GONADOTROPIN TEST CPT-4 68314 Jun 24, 2015 No Charge CPT-4 07699 Jun 24, 2015 URINE TEST CPT-4 29363 Jun 24, 2015 Office Visit, Est Pt., Level 3 CPT-4 69666 Jun 24, 2015 TRICHOMONAS ASSAY W/OPTIC CPT-4 55324 Jun 24, 2015 VENIPUNCT, ROUTINE* CPT-4 16702 Jun 24, 2015 Vital Signs Date/Time: Jun 24, 2015 Temperature 98.8 F Weight 179.7 lbs Height 68 in BMI 27.32 Index Blood Pressure Diastolic 74 mmHg Blood Pressure Systolic 128 mmHg Cardiac Monitoring Heart Rate 88 bpm Results Name Result Date Reference Range Unit Abnormality Flag ROUTINE VENIPUNCTURE TEST, URINE (IN HOUSE) ----RESULTS Negative [id number] ----Lot # [id number] ----Control + [id number] ----Exp date [id number] TRICHOMONAS (IN HOUSE) ----Exp date [id number] ----Control + [id number] ----Lot # [id number] ----TRICHOMONAS negative [id number] Summary Purpose eClinicalWorks Submission
--- OUTSIDE RECORDS SUMMARY | 2016-12-31 13:01 | XMS REPORT | Continuity of Care Document ---
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 NRG Urine pH measurement by test strip 7 5- 9 Specific gravity of urine by test strip 1.015 1.016-1.022 Urine protein assay by test strip, semi-quantitative NEGATIVE NEGATIVE Urine glucose detection by automated test strip NEGATIVE NEGATIVE Erythrocytes detection in urine sediment by light microscopy NEGATIVE NEGATIVE Urine ketones detection by automated test strip NEGATIVE NEGATIVE Urine nitrite detection by test strip NEGATIVE NEGATIVE Urine total bilirubin detection by test strip NEGATIVE NEGATIVE Urine urobilinogen measurement by automated test strip (mass/volume) NORMAL NORMAL Urine leukocyte esterase detection by dipstick NEGATIVE NEGATIVE Automated urine sediment erythrocyte count by microscopy (number/high power field) NONE NRG Automated urine sediment leukocyte count by microscopy (number/high power field ) [HPF] NRG Bacteria detection in urine sediment by light microscopy FEW NRG Squamous epithelial cells detection in urine sediment by light microscopy 5-10 NRG Crystals detection in urine sediment by light microscopy NONE NRG Casts detection in urine sediment by light microscopy NONE NRG Mucus detection in urine sediment by light microscopy NEGATIVE NRG Complete urinalysis with reflex to culture NO NRG Amorphous sediment detection in urine sediment by light microscopy LARGE STEPHANIE URATES NRG Comprehensive metabolic panel - 08/26/16 16:00 Serum or plasma sodium measurement (moles/volume) 139 mmol/ L 135-145 Serum or plasma potassium measurement (moles/volume) 3.5 mmol/L 3.6-5.0 Serum or plasma chloride measurement (moles/volume) 106 mmol /L 98-107 Carbon dioxide 25 mmol/L 21-32 Serum or plasma anion gap determination (moles/volume) 8 mmol/L 5-14 Serum or plasma urea nitrogen measurement (mass/volume) 15 mg/dL 7-18 Serum or plasma creatinine measurement (mass/volume) 0.77 mg /dL 0.60-1.30 Serum or plasma urea nitrogen/creatinine mass ratio 19 NRG Serum or plasma creatinine measurement with calculation of estimated glomerular filtration rate > NRG Serum or plasma glucose measurement (mass/volume) 82 mg/dL 70-105 Serum or plasma calcium measurement (mass/volume) 8.7 mg/dL 8.5-10.1 Serum or plasma total bilirubin measurement (mass/volume) 0.5 mg/dL 0.1-1.0 Serum or plasma alkaline phosphatase measurement (enzymatic activity/volume) 55 U/L 40-136 Serum or plasma aspartate aminotransferase measurement (enzymatic activity/ volume) 24 U/L 5-34 Serum or plasma alanine aminotransferase measurement (enzymatic activity/volume ) 29 U/L 0-55 Serum or plasma protein measurement (mass/volume) 6.4 g/dL 6.4-8.2 Serum or plasma albumin measurement (mass/volume) 3.7 g/dL 3.2-4.5 Serum or plasma thyroxine (T4) free measurement (mass/volume) - 08/26/16 16:00 Serum or plasma thyroxine (T4) free measurement (mass/volume) 0.90 ng/dL 0.70-1.48 Serum or plasma choriogonadotropin measurement (units/volume) - 08/26/16 16:00 Serum or plasma choriogonadotropin measurement (units/volume) 1496 m[iU]/mL <5 Serum or plasma thyrotropin measurement by detection limit <=0.05 miu/l (units/ volume) - 08/26/16 16:00 Serum or plasma thyrotropin measurement by detection limit <=0.05 miu/l (units/ volume) 0.26 u[iU]/mL 0.35-4.94 Serum or plasma ethanol measurement (mass/volume) - 08/26/16 16:00 Serum or plasma ethanol measurement (mass/volume) < mg/dL <10 Encounters ACCT No. Visit Date/Time Discharge Status Pt. Type Provider Facility Loc./Unit Complaint [id number] 09/05/2014 15:57:00 09/05/2014 23: 59:59 CLS Outpatient JIMMIE SCHMIDT APRN [id number] 08/23/2014 00:00:00 08/23/2014 23: 59:59 CLS Outpatient CURTIS ROUSSEAU RN [id number] 07/02/2014 00:00:00 07/02/2014 23: 59:59 CLS Outpatient CURTIS ROUSSEAU RN [id number] 03/06/2014 11:47:00 03/06/2014 23: 59:59 CLS Outpatient JONI LANIER DO [id number] 02/02/2014 13:52:00 02/02/2014 23: 59:59 CLS Outpatient REYNALDO GUTIERREZ MD [id number] 11/30/2013 15:21:00 11/30/2013 23: 59:59 CLS Outpatient JULIEN MAYA APRN [id number] 10/03/2013 18:00:00 10/03/2013 23: 59:59 CLS Outpatient JIMMIE SCHMIDT APRN [id number] 09/09/2013 10:51:00 09/09/2013 23: 59:59 CLS Outpatient JONI LANIER DO [id number] 07/13/2013 14:00:00 07/13/2013 23: 59:59 CLS Outpatient DIPAK CHINCHILLA PHD [id number] 06/27/2013 13:41:00 06/27/2013 23: 59:59 CLS Outpatient DIPAK CHINCHILLA PHD [id number] 04/06/2013 11:03:00 04/06/2013 23: 59:59 CLS Outpatient JONI LANIER DO [id number] 03/08/2013 11:34:00 03/08/2013 23: 59:59 CLS Outpatient JONI LANIER DO [id number] 08/31/2012 18:02:00 08/31/2012 23: 59:59 CLS Outpatient JONI LANIER DO [id number] 06/10/2012 09:29:00 06/10/2012 23: 59:59 [facility] Outpatient JONI LANIER DO [id number] 10/27/2012 12:19:00 Document Registration [id number] 10/11/2012 17:15:00 Document Registration
--- NOTE | 2016-12-31 13:26 | ED Integumentary General ---
General Chief Complaint: Trauma-Non Activation Stated Complaint: CHEMICAL BURN RT THIGH Source: patient Exam Limitations: no limitations History of Present Illness Time seen by provider: 13:25 Initial Comments Patient works at [employer]. She spilled a catalyst on her right anterior thigh called methyl ethyl ketone. She rinsed this off with acetone. She then went and took 2 showers. She has erythema and some tenderness to the anterior right leg. She is 6 months . Timing/Duration: just prior to arrival Severity: moderate Associated Symptoms: denies symptoms Allergies and Home Medications Allergies Coded Allergies: venlafaxine (Verified Allergy, Mild, 07/23/14) Penicillins (Verified Allergy, Unknown, 01/30/08) Home Medications Nitrofurantoin Monohyd/M-Cryst 100 Mg Capsule, 1 TAB PO BID, #6 Ref 0 Prescribed by: CAROLA MCGUIRE on 08/26/16 [id number] Constitutional: see HPI EENTM: see HPI Respiratory: no symptoms reported Cardiovascular: no symptoms reported Genitourinary: no symptoms reported Musculoskeletal: no symptoms reported Skin: see HPI Psychiatric/Neurological: No Symptoms Reported Endocrine: No Symptoms Reported Past Tbzpgqa-Tzrmzd-Petgby Hx Patient Social History Recent Foreign Travel: No Contact w/Someone Who Travel: No Recent Hopitalizations: Yes (CHILDBIRTH) Immunizations Up To Date Tetanus Booster (TDap): Less than 5yrs Seasonal Allergies Seasonal Allergies: No Surgeries HX Surgeries: Yes (DENTAL EXTRACTIONS, RIGHT FOOT SURGERY X 2) Surgeries: Section, Gallbladder, Orthopedic Respiratory Hx Respiratory Disorders: Yes Respiratory Disorders: Asthma Cardiovascular Hx Cardiac Disorders: Yes ("HOLE IN HEART" PER PT) Cardiac Disorders: Syncope Neurological Hx Neurological Disorders: Yes (PT STATES SHE "PASSES OUT ALOT") Neurological Disorders: Concussion, Parkinson's Disease, Traumatic Brain Injury Reproductive System Hx Reproductive Disorders: No Sexually Transmitted Disease: No Female Reproductive Disorders: Denies Genitourinary Hx Genitourinary Disorders: No Gastrointestinal Hx Gastrointestinal Disorders: No Musculoskeletal Hx Musculoskeletal Disorders: No Endocrine Hx Endocrine Disorders: No HEENT HX ENT Disorders: No Cancer Hx Cancer: No Psychosocial Hx Psychiatric Problems: Yes Behavioral Health Disorders: ADD/ADHD, Sleep Difficulties, Anxiety, PTSD, Depression Integumentary HX Skin/Integumentary Disorder: No Blood Transfusions Hx Blood Disorders: No Family Medical History Significant Family History: No Pertinent Family Hx Physical Exam Vital Signs Vital Sign - Last 12Hours 12/31/16 13:18 Temp 97.9 Pulse 86 Resp 20 B/P (MAP) 127/76 Pulse Ox 98 O2 Delivery Room Air Capillary Refill : Less Than 3 Seconds General Appearance: WD/WN, no apparent distress HEENT: PERRL/EOMI, normal ENT inspection Neck: non-tender, full range of motion Cardiovascular: regular rate, rhythm, no murmur Respiratory: no respiratory distress, no accessory muscle use Gastrointestinal: non tender, soft Extremities: normal range of motion, non-tender Neurologic/Psychiatric: alert, normal mood/affect, oriented x 3 Skin: other (there is erythema to the right anterior thigh to a large area but without blistering or discoloration of the skin. This does jg.) Skin Problem Location: lower extremities Progress/Results/Core Measures Results/Orders My Orders Orders - ORION PETTIT APRN Bacitracin Ointment (Bacitracin Ointment (12/31/16 21:00) Vital Signs/I&O Vital Sign - Last 12Hours 12/31/16 13:18 Temp 97.9 Pulse 86 Resp 20 B/P (MAP) 127/76 Pulse Ox 98 O2 Delivery Room Air Departure Communication Progress Notes 1327-upon arrival to ER her leg was rinsed off with chlorhexidine/saline solution. Material safety data sheets were obtained for the methyl ethyl ketone and the acetone. Both of which recommend decontamination by rinsing and application of topical antibacterial ointment. The pH of methyl ethyl ketone could not be obtained and is not on the material safety data sheet. Impression Impression: Primary Impression: Chemical burn of skin Disposition: 01 HOME, SELF-CARE Condition: Stable Departure-Patient Inst. Decision time for Depature: 13:28 Referrals: KWAME DAVIS MD (PCP) Primary Care Physician GAYLE RICO (Family) Primary Care Physician Patient Instructions: [place] (DC) Add. Discharge Instructions: 1. Return to ER for any concerns 2. Apply the antibiotic ointment twice daily for the next 3 days 3. All discharge instructions reviewed with patient and/or family. Voiced understanding. ORION PETTIT APRN Dec 31, 2016 13:26
[2016-12-31] MEDS ORDERED: IRON18TA PO (13:43)
[2016-12-31] MEDS ORDERED: VITA100D PO (13:43)
[2016-12-31] MEDS ORDERED: FOLI0.4T2 PO (13:43)
[2016-12-31 14:04] VITALS: BP 127/76
[2016-12-31] MEDS ORDERED: BACITRACIN OINTMENT 28 GM TUBE TOP SCH (21:00)
== END 2016-12-31 14:04 | disposition home or self-care (01) ==
LOC: EDUNIT# 12:51 → ER 12:53
DX: O99.89 Other specified diseases and conditions complicating pregnancy, childbirth and the puerperium (principal); T52.4X1A Toxic effect of ketones, accidental (unintentional), initial encounter; T24.511A Corrosion of first degree of right thigh, initial encounter; Z3A.00 Weeks of gestation of pregnancy not specified; Y92.59 Other trade areas as the place of occurrence of the external cause; Y99.0 Civilian activity done for income or pay
CPT/HCPCS: 99282

== ENCOUNTER 2017-02-22 10:38 | Emergency (ER) | payer MEDICAID ==
[~2017-02-22] VITALS: Ht 170.2 cm; Wt 102.1 kg
[~2017-02-22 10:38] MED LIST changes: +FOLI0.4T2 PO; +IRON18TA PO; +VITA100D PO
[2017-02-22] MEDS ORDERED: predniSONE 20 MG TAB PO ONE (11:45)
--- NOTE | 2017-02-22 11:48 | ED Integumentary General ---
General Chief Complaint: Allergic Reaction Stated Complaint: RASH ALL OVER BODY Nursing Triage Note: pt reports rash starting yesterday. pt reports increase in rash on arms and legs. Source: patient Exam Limitations: no limitations History of Present Illness Time seen by provider: 11:30 Initial Comments Here with report of rash that started yesterday and has increased today. Noted on her arms and upper legs bilaterally as well as around the bra line. Urticarial type. Was on clindamycin for possible spider bite to the right upper thigh that has subsequently healed. Last dose of that was yesterday and rash started afterwards. Was in the sun is weekend. Denies any other contact with anything that would cause allergic reaction. She is 7-1/2 months . She has tried Benadryl is not helping Timing/Duration: yesterday, getting worse Severity: moderate Location: torso, extremities Possible Cause: medications Modifying Factors: improves with antihistamine Associated Symptoms: No fever, No nasal congestion, rash, No swelling/mass/ lumps Allergies and Home Medications Allergies Coded Allergies: venlafaxine (Verified Allergy, Mild, 07/23/14) Penicillins (Verified Allergy, Unknown, 01/30/08) Home Medications Folic Acid 0.4 Mg Tablet, 0.4 MG PO DAILY, (Reported) Iron 18 Mg Tablet, 18 MG PO DAILY, (Reported) Vitamin E Acetate 100 Unit/0.25 Ml Drops, 100 UNIT PO DAILY, (Reported) Constitutional: see HPI, No chills, No fever EENTM: no symptoms reported, No nose congestion, No throat pain Respiratory: No short of breath, No wheezing Cardiovascular: no symptoms reported Gastrointestinal: no symptoms reported Genitourinary: no symptoms reported Expected Date of Delivery: Apr 29, 2017 Musculoskeletal: no symptoms reported Skin: see HPI, pruritus, rash Psychiatric/Neurological: No Symptoms Reported Past Ftbwrho-Bvhxyr-Gpdlln Hx Patient Social History Alcohol Use: Denies Use Recreational Drug Use: No Smoking Status: Never a Smoker Recent Foreign Travel: No Contact w/Someone Who Travel: No Recent Infectious Disease Expo: No Recent Hopitalizations: No Physical Abuse: No Sexual Abuse: No Mistreated: No Immunizations Up To Date Tetanus Booster (TDap): Less than 5yrs Seasonal Allergies Seasonal Allergies: No Surgeries History of Surgeries: Yes (DENTAL EXTRACTIONS, RIGHT FOOT SURGERY X 2) Surgeries: Section, Gallbladder, Orthopedic Respiratory History of Respiratory Disorde: Yes (CHILDHOOD ASTHMA) Respiratory Disorders: Asthma Cardiovascular History of Cardiac Disorders: Yes ("HOLE IN HEART" PER PT) Cardiac Disorders: Syncope Neurological History of Neurological Disord: Yes (PT STATES SHE "PASSES OUT ALOT") Neurological Disorders: Concussion, Parkinson's Disease, Traumatic Brain Injury Reproductive System : Yes Expected Date of Delivery: Apr 29, 2017 Hx Reproductive Disorders: No Sexually Transmitted Disease: No Female Reproductive Disorders: Denies Genitourinary History of Genitourinary Disor: No Gastrointestinal History of Gastrointestinal Di: No Musculoskeletal History of Musculoskeletal Dis: No Endocrine History of Endocrine Disorders: No Cancer History of Cancer: No Psychosocial History of Psychiatric Problem: Yes Behavioral Health Disorders: ADD/ADHD, Sleep Difficulties, Anxiety, PTSD, Depression Suicide Risk Score: 0 Integumentary History of Skin or Integumenta: No Blood Transfusions History of Blood Disorders: No Reviewed Nursing Assessment Reviewed/Agree w Nursing PMH: Yes Family Medical History Significant Family History: No Pertinent Family Hx Physical Exam Vital Signs Vital Sign - Last 12Hours 02/22/17 11:19 Temp 99.0 Pulse 80 Resp 18 B/P (MAP) 141/63 Pulse Ox 97 Capillary Refill : Less Than 3 Seconds General Appearance: WD/WN, no apparent distress Cardiovascular: regular rate, rhythm, no murmur Respiratory: lungs clear, normal breath sounds Gastrointestinal: non tender, soft Extremities: non-tender, normal inspection Neurologic/Psychiatric: alert, oriented x 3 Skin: normal color, warm/dry Skin Problem Character: rash, urticarial Progress/Results/Core Measures Results/Orders My Orders Orders - ARELIS RUVALCABA MD Prednisone Tablet (Deltasone Tablet) (02/22/17 11:45) Vital Signs/I&O Vital Sign - Last 12Hours 02/22/17 11:19 Temp 99.0 Pulse 80 Resp 18 B/P (MAP) 141/63 Pulse Ox 97 Blood Pressure Mean: 89 Progress Note : Progress Note Seen and evaluated. Prednisone 40 mg by mouth. Discharged home with return precautions. Patient verbalize understanding instructions and agreement with plan. Departure Impression Impression: Primary Impression: Allergic reaction caused by a drug Qualified Codes: T78.40XA - Allergy, unspecified, initial encounter Additional Impression: Urticaria due to drug allergy Disposition: 01 HOME, SELF-CARE Condition: Improved Departure-Patient Inst. Decision time for Depature: 11:50 Referrals: KWAME DAVIS MD (PCP) Primary Care Physician GAYLE RICO (Family) Primary Care Physician Patient Instructions: Drug Allergy Add. Discharge Instructions: All discharge instructions reviewed with patient and/or family. Voiced understanding. Take medications as directed. Follow-up with your doctor as scheduled on the seventh. Return for worsening, fever, vomiting, weakness, breathing problems and other concerns as needed. You may take Benadryl 25 mg every 6 hours as needed for itching. Scripts Prednisone (Prednisone) 20 Mg Tab 40 MG PO DAILY, #8 TAB 0 Refills Prov: ARELIS RUVALCABA MD 02/22/17 ARELIS RUVALCABA MD Feb 22, 2017 11:47
[2017-02-22] MEDS ORDERED: PRD20T PO (11:51)
[2017-02-22 11:55] VITALS: BP 128/60
== END 2017-02-22 11:55 | disposition home or self-care (01) ==
LOC: EDUNIT# 10:38 → ER 10:40
DX: O26.893 Other specified pregnancy related conditions, third trimester (principal); L50.0 Allergic urticaria; T36.8X5A Adverse effect of other systemic antibiotics, initial encounter; O99.513 Diseases of the respiratory system complicating pregnancy, third trimester; J45.909 Unspecified asthma, uncomplicated; O99.343 Other mental disorders complicating pregnancy, third trimester; G20 Parkinson's disease; F41.9 Anxiety disorder, unspecified; F43.10 Post-traumatic stress disorder, unspecified; F32.9 Major depressive disorder, single episode, unspecified; F90.9 Attention-deficit hyperactivity disorder, unspecified type; Z3A.30 30 weeks gestation of pregnancy; Z87.820 Personal history of traumatic brain injury; Z87.59 Personal history of other complications of pregnancy, childbirth and the puerperium
CPT/HCPCS: 99283

== ENCOUNTER 2017-04-12 05:28 | Outpatient (CLI) | payer MEDICAID ==
[~2017-04-12] VITALS: Ht 170.2 cm; Wt 102.1 kg
[~2017-04-12 05:28] MED LIST changes: +PRD20T PO
== END 2017-04-12 11:38 ==
LOC: PREOP 05:28
PROVIDERS: ATTEND Obstetrics & Gynecology
DX: Z01.818 Encounter for other preprocedural examination (principal); O34.219 Maternal care for unspecified type scar from previous cesarean delivery; Z3A.00 Weeks of gestation of pregnancy not specified

== ENCOUNTER 2017-04-19 05:56 | Inpatient (IN) | payer MEDICAID ==
[~2017-04-19] VITALS: Ht 170.2 cm; Wt 104.0 kg
[~2017-04-19 05:56] MED LIST changes: +CITRIC ACID/SOB CIT (BICITRA) 30 ML UDC ONE; +FAMOTIDINE 20MG/2ML IV (PEPCID) ONE; +METOCLOPRAMIDE INJ 10 MG/2 ML (REGLAN) ONE; +ceFAZolin 2 GM/50 ML NS 50 ML ONE
[2017-04-19] MEDS ORDERED: LACTATED RINGERS 1,000 ML IV PRN ×2 (06:03)
--- OUTSIDE RECORDS SUMMARY | 2017-04-19 06:04 | XMS REPORT ---
Author Author GAYLE RICO [facility] Address [address] [place] [address] Care Team Providers Care Stage Producer Name Role Phone GAYLE RICO Unavailable PROBLEMS Type Condition ICD9-CM Code [id number] Code Onset Dates Condition Status SNOMED Code Problem Overweight E66.3 Active 044068226 Problem Dyshidrosis L30.1 Active 683139970 Problem Migraine without aura and with status migrainosus, not intractable G43.001 Active 931662478 Problem Arthralgia, unspecified joint M25.50 Active 63838451 Problem Depressive disorder F32.9 Active 24147732 Problem Insomnia, unspecified G47.00 Active 225101795 Problem Umbilical hernia K42.9 Active 018372417 Problem Anxiety F41.9 Active 43479137 ALLERGIES Unknown Allergies SOCIAL HISTORY No smoking Hx information available PLAN OF CARE VITAL SIGNS MEDICATIONS Medication Instructions Dosage Frequency Start Date End Date Duration Status Diflucan 100 MG Orally Once a day 1 tablet 24h Jun, Jun, 07 days Active RESULTS No Results PROCEDURES No Known procedures IMMUNIZATIONS No Known Immunizations
--- OUTSIDE RECORDS SUMMARY | 2017-04-19 06:06 | XMS REPORT ---
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 Name Role Phone GAYLE RICO Unavailable PROBLEMS Type Condition ICD9-CM Code [id number] Code Onset Dates Condition Status SNOMED Code Problem Overweight E66.3 Active 684921180 Problem Dyshidrosis L30.1 Active 152371190 Problem Migraine without aura and with status migrainosus, not intractable G43.001 Active 944009419 Problem Arthralgia, unspecified joint M25.50 Active 93684157 Problem Depressive disorder F32.9 Active 29796885 Problem Insomnia, unspecified G47.00 Active 541901539 Problem Umbilical hernia K42.9 Active 906676775 Problem Anxiety F41.9 Active 53110505 ALLERGIES Substance Reaction Event Type Date Status Penicillin V Potassium Unknown Drug Allergy Jun, Active Effexor Unknown Drug Allergy Jun, Active Detergents And Soaps Unknown Non Drug Allergy Jun, Active SOCIAL HISTORY No smoking Hx information available PLAN OF CARE Activity Details Follow Up 3 Months if desired for weight Reason: VITAL SIGNS Height 68 in 2016-07-16 Weight 167.0 lbs 2016-07-16 Temperature 98.8 degrees Fahrenheit 2016-07-16 Heart Rate 90 bpm 2016-07-16 Respiratory Rate 18 2016-07-16 BMI 25.39 kg/m2 2016-07-16 Blood pressure systolic 128 mmHg 2016-07-16 Blood pressure diastolic 76 mmHg 2016-07-16 MEDICATIONS Medication Instructions Dosage Frequency Start Date End Date Duration Status Aspercreme w/Lidocaine 4 % Externally 4 times a day as directed 6h Mar, Active Flonase 50 MCG/ACT Nasally Once a day 1 spray in each nostril 24h 24 Feb, 2015 30 day(s) Active Ibuprofen 800 MG Orally Three times a day 1 tablet 8h Jun, 30 day(s) Active BusPIRone HCl 10 mg Orally Twice a day prn anxiety 1 tablet Active Cyclobenzaprine HCl 10 mg Orally once a day prn 1 tablet Active Diclofenac Sodium 75 MG TAKE ONE TABLET BY MOUTH TWICE DAILY 30 Active Phentermine HCl 37.5 MG (Schedule IV Drug) TAKE ONE TABLET BY MOUTH ONCE DAILY. 28 Active RESULTS No Results PROCEDURES Procedure Date Ordered Related Diagnosis Body Site Office Visit, Est Pt., Level 3 Jul 16, 2016 IMMUNIZATIONS No Known Immunizations
--- OUTSIDE RECORDS SUMMARY | 2017-04-19 06:06 | XMS REPORT ---
Author Author GAYLE RICO [facility] Address [address] [place] [address] Care Team Providers Care Wheel Borer Name Role Phone GAYLE RICO Unavailable PROBLEMS Type Condition ICD9-CM Code [id number] Code Onset Dates Condition Status SNOMED Code Problem Overweight E66.3 Active 687627948 Problem Dyshidrosis L30.1 Active 241266291 Problem Migraine without aura and with status migrainosus, not intractable G43.001 Active 880867768 Problem Arthralgia, unspecified joint M25.50 Active 09956483 Problem Depressive disorder F32.9 Active 87463303 Problem Insomnia, unspecified G47.00 Active 642588366 Problem Umbilical hernia K42.9 Active 972020019 Problem Anxiety F41.9 Active 43229206 ALLERGIES Substance Reaction Event Type Date Status Penicillin V Potassium Unknown Drug Allergy May, Active Effexor Unknown Drug Allergy May, Active Detergents And Soaps Unknown Non Drug Allergy May, Active SOCIAL HISTORY No smoking Hx information available PLAN OF CARE Activity Details Follow Up 4 Weeks Reason:weight VITAL SIGNS Height 68 in 2016-06-18 Weight 171 lbs 2016-06-18 Temperature 98.9 degrees Fahrenheit 2016-06-18 Heart Rate 90 bpm 2016-06-18 Respiratory Rate 20 2016-06-18 BMI 26.00 kg/m2 2016-06-18 Blood pressure systolic 122 mmHg 2016-06-18 Blood pressure diastolic 60 mmHg 2016-06-18 MEDICATIONS Medication Instructions Dosage Frequency Start Date End Date Duration Status BusPIRone HCl 10 mg Orally Twice a day prn anxiety 1 tablet Active Diflucan 100 MG Orally daily 1 tablet 24h May, Jun, 10 day (s) Active Cyclobenzaprine HCl 10 mg Orally once a day prn 1 tablet Active Aspercreme w/Lidocaine 4 % Externally 4 times a day as directed 6h Mar, Active Flonase 50 MCG/ACT Nasally Once a day 1 spray in each nostril 24h 24 Feb, 2015 30 day(s) Active Phentermine HCl 37.5 MG (Schedule IV Drug) TAKE ONE TABLET BY MOUTH ONCE DAILY. 28 Active Diclofenac Sodium 75 MG TAKE ONE TABLET BY MOUTH TWICE DAILY 30 Active Bactrim DS 800-160 MG Orally Twice a day 1 tablet 12h May, Jun, 5 day(s) Active RESULTS Name Result Date Reference Range UA LONG DIP (IN HOUSE) 2016-06-18 Lot # [id number] Exp date 04/2017 Clarity clear Color madelyn Odor none GLU negative CARMEN 1+ KET negative SG 1.025 BLO negative pH 5.5 Protein negative URO 1.0 NIT negative JOHN trace Lot # Exp date CULTURE, GENITAL 2016-06-18 Genital Culture, Routine Final report Result 1 Yeast isolated. Result 2 PROCEDURES Procedure Date Ordered Related Diagnosis Body Site LAB NOT BILLED BY [facility] Jun 18, 2016 Office Visit, Est Pt., Level 4 Jun 18, 2016 URINALYSIS, AUTO, W/O SCOPE Jun 18, 2016 IMMUNIZATIONS No Known Immunizations
--- OUTSIDE RECORDS SUMMARY | 2017-04-19 06:08 | XMS REPORT ---
Author Author THUY FRANCIS [facility] Address [address] [place] [address] Care Team Providers Care Office Specialist Name Role Phone THUY FRANCIS Unavailable PROBLEMS Type Condition ICD9-CM Code QQS09-OT Code Onset Dates Condition Status SNOMED Code Problem Overweight E66.3 Active 799950544 Problem Dyshidrosis L30.1 Active 754814000 Problem Migraine without aura and with status migrainosus, not intractable G43.001 Active 281484486 Problem Arthralgia, unspecified joint M25.50 Active 44760681 Problem Depressive disorder F32.9 Active 78715074 Problem Insomnia, unspecified G47.00 Active 603013419 Problem Umbilical hernia K42.9 Active 091436452 Problem Anxiety F41.9 Active 93514482 ALLERGIES Substance Reaction Event Type Date Status Penicillin V Potassium Unknown Drug Allergy Aug, Active Effexor Unknown Drug Allergy Aug, Active Detergents And Soaps Unknown Non Drug Allergy Aug, Active SOCIAL HISTORY Never Assessed PLAN OF CARE Activity Details Follow Up As scheduled for intake Reason: VITAL SIGNS Height 68 in 2016-08-28 Weight 177 lbs 2016-08-28 Temperature 98.2 degrees Fahrenheit 2016-08-28 Heart Rate 88 bpm 2016-08-28 Respiratory Rate 18 2016-08-28 BMI 26.91 kg/m2 2016-08-28 Blood pressure systolic 90 mmHg 2016-08-28 Blood pressure diastolic 60 mmHg 2016-08-28 MEDICATIONS Unknown Medications RESULTS Name Result Date Reference Range TEST, URINE (IN HOUSE) 2016-08-28 RESULTS positive Lot # [id number] Control + Exp date 09/2017 PROCEDURES Procedure Date Ordered Result Body Site URINE TEST August 28, 2016 IMMUNIZATIONS No Known Immunizations MEDICAL (GENERAL) HISTORY Type Description Date Medical History PTSD Medical History Insomnia Medical History Neurologist Dr. Mendiola put on Amitidine too high dosage - caused Parkinson's symptoms Medical History Tremor Medical History Traumatic Brain Injury: [id number] Medical History [facility]: Dr. Mulligan and therapist Betsy at [facility] Surgical History orthopedic surgery-ganglion cyst on right foot 2002, 2004 Surgical History cholecystectomy 2004 Surgical History section 2010 Hospitalization History Hospitalization for surgery only
--- OUTSIDE RECORDS SUMMARY | 2017-04-19 06:09 | XMS REPORT ---
Author Author THUY FRANCIS Organization [facility], [place] Address [address] [place] [address] Care Team Providers Care Padder Name Role Phone THUY FRANCIS Unavailable PROBLEMS Type Condition ICD9-CM Code [id number] Code Onset Dates Condition Status SNOMED Code Problem Overweight E66.3 Active 874215797 Problem Dyshidrosis L30.1 Active 709952755 Problem Migraine without aura and with status migrainosus, not intractable G43.001 Active 824768910 Problem Arthralgia, unspecified joint M25.50 Active 19052096 Problem Depressive disorder F32.9 Active 02744083 Problem Insomnia, unspecified G47.00 Active 433140857 Problem Umbilical hernia K42.9 Active 080397531 Problem Anxiety F41.9 Active 97325454 ALLERGIES Substance Reaction Event Type Date Status Penicillin V Potassium Unknown Drug Allergy Aug, Active Effexor Unknown Drug Allergy Aug, Active Detergents And Soaps Unknown Non Drug Allergy Aug, Active SOCIAL HISTORY Never Assessed PLAN OF CARE VITAL SIGNS MEDICATIONS Unknown Medications RESULTS No Results PROCEDURES No Known procedures IMMUNIZATIONS No Known Immunizations MEDICAL (GENERAL) HISTORY Type Description Date Medical History PTSD Medical History Insomnia Medical History Neurologist Dr. Mendiola put on Amitidine too high dosage - caused Parkinson's symptoms Medical History Tremor Medical History Traumatic Brain Injury: [id number] Medical History [facility] Mental Health: Dr. Mulligan and therapist Betsy at [facility] Surgical History orthopedic surgery-ganglion cyst on right foot 2002, 2004 Surgical History cholecystectomy 2005 Surgical History section 2007, 2010 Hospitalization History Hospitalization for surgery only
[2017-04-19] MEDS ORDERED: FAMOTIDINE 20MG/2ML IV (PEPCID) IV ONE (06:15)
[2017-04-19] MEDS ORDERED: METOCLOPRAMIDE INJ 10 MG/2 ML (REGLAN) IV ONE (06:15)
[2017-04-19] MEDS ORDERED: CATHETER FLUSH 10 ML SYR IV PRN (06:15)
[2017-04-19] MEDS ORDERED: CITRIC ACID/SOB CIT (BICITRA) 30 ML UDC PO ONE (06:15)
--- OUTSIDE RECORDS SUMMARY | 2017-04-19 06:15 | XMS REPORT ---
Author Author ENRIQUE ALMONTE Organization [facility] Address [address] [place] [address] Care Team Providers Care Street Commissioner Name Role Phone KODY ALMONTEICE Unavailable PROBLEMS Type Condition ICD9-CM Code [id number]-AY Code Onset Dates Condition Status SNOMED Code Problem Overweight E66.3 Active 253051336 Problem Dyshidrosis L30.1 Active 709390420 Problem Migraine without aura and with status migrainosus, not intractable G43.001 Active 691028511 Problem Arthralgia, unspecified joint M25.50 Active 79106398 Problem Depressive disorder F32.9 Active 13885903 Problem Insomnia, unspecified G47.00 Active 408328160 Problem Umbilical hernia K42.9 Active 777610365 Problem Anxiety F41.9 Active 70773954 ALLERGIES Substance Reaction Event Type Date Status Penicillin V Potassium Unknown Drug Allergy Jun, Active Effexor Unknown Drug Allergy Jun, Active Detergents And Soaps Unknown Non Drug Allergy Jun, Active SOCIAL HISTORY No smoking Hx information available PLAN OF CARE Activity Details Follow Up prn Reason: VITAL SIGNS Height 68 in 2016-06-25 Weight 177.4 lbs 2016-06-25 Temperature 97.7 degrees Fahrenheit 2016-06-25 Heart Rate 86 bpm 2016-06-25 Respiratory Rate 20 2016-06-25 BMI 26.97 kg/m2 2016-06-25 Blood pressure systolic 120 mmHg 2016-06-25 Blood pressure diastolic 70 mmHg 2016-06-25 MEDICATIONS Medication Instructions Dosage Frequency Start Date End Date Duration Status Cyclobenzaprine HCl 10 mg Orally once a day prn 1 tablet Active BusPIRone HCl 10 mg Orally Twice a day prn anxiety 1 tablet Active Ibuprofen 800 MG Orally Three times a day 1 tablet 8h Jun, 30 day(s) Active Diclofenac Sodium 75 MG TAKE ONE TABLET BY MOUTH TWICE DAILY 30 Active Flonase 50 MCG/ACT Nasally Once a day 1 spray in each nostril 24h Feb, 30 day(s) Active Diflucan 100 MG Orally daily 1 tablet 24h May, Jun, 10 day (s) Active Phentermine HCl 37.5 MG (Schedule IV Drug) TAKE ONE TABLET BY MOUTH ONCE DAILY. 28 Active Aspercreme w/Lidocaine 4 % Externally 4 times a day as directed 6h Mar, Active Ibuprofen 800 MG Orally Three times a day 1 tablet 8h Active RESULTS No Results PROCEDURES Procedure Date Ordered Related Diagnosis Body Site DEPO MEDROL 40 MG/ML Jun 25, 2016 THER/PROPH/DIAG INJ, SC/IM Jun 25, 2016 Office Visit, Est Pt., Level 3 Jun 25, 2016 DEXAMETHASONE 4MG/ML (PER 1 MG) Jun 25, 2016 IMMUNIZATIONS Vaccine Route Administration Date Status DEXAMETHASONE 4MG/ML (PER 1 MG) IM Intramuscular Jun 25, 2016 Administered DEPO MEDROL 40 MG/ML IM Intramuscular Jun 25, 2016 Administered
[2017-04-19 06:40] VITALS: BP 103/56
[2017-04-19 06:48] LABS: BASOPHILS % (AUTO) 0 % (0-10); EOSINOPHILS # (AUTO) 0.1 10^3/uL (0.0-0.3); EOSINOPHILS % (AUTO) 1 % (0-10); LYMPHOCYTES # (AUTO) 1.6 X 10^3 (1.0-4.0); LYMPHOCYTES % (AUTO) 16 % (12-44); MEAN CORPUSCULAR HEMOGLOBIN 28 PG (25-34); MEAN CORPUSCULAR HGB CONC 35 G/DL (32-36); MEAN CORPUSCULAR VOLUME 81 FL (80-99); MEAN PLATELET VOLUME 10.1 FL (7.4-10.4); MONOCYTES # (AUTO) 0.8 X 10^3 (0.0-1.0); MONOCYTES % (AUTO) 8 % (0-12); NEUTROPHILS # (AUTO) 7.4 X 10^3 (1.8-7.8); NEUTROPHILS % (AUTO) 74 % (42-75); PLATELET COUNT 236 10^3/uL (130-400); RED BLOOD COUNT 4.33 10^6/uL (4.35-5.85); RED CELL DISTRIBUTION WIDTH 14.3 % (10.0-14.5)
[2017-04-19 06:49] LABS: BILIRUBIN,URINE NEGATIVE (NEGATIVE); KETONES,URINE NEGATIVE (NEGATIVE); LEUKOCYTE ESTERASE ,URINE NEGATIVE (NEGATIVE); NITRITE,URINE NEGATIVE (NEGATIVE); PH,URINE 6 (5-9); PROTEIN,URINE NEGATIVE (NEGATIVE); UROBILINOGEN,URINE NORMAL (NORMAL)
[2017-04-19] MEDS ORDERED: fentaNYL INJECTION 100 MCG/2 ML AMP ONE (06:58)
[2017-04-19] MEDS ORDERED: morphine PF (DURAMORPH) 10 MG/10 ML AMP ONE (06:58)
[2017-04-19] MEDS ORDERED: OXYTOCIN/NORMAL SALINE 1,000 ML IV ONE (06:58)
--- NOTE | 2017-04-19 07:18 | History & Physical-OB ---
OB - Chief Complaint & HPI Date/Time Date of Admission: Date of Admission: Apr 19, 2017 at 05:56 Time Seen by Provider: 07:05 Chief Complaint/History OB-Reason for Admission/Chief: Section Hx : 5 Hx Para: 3 Expected Date of Delivery: Apr 29, 2017 Gestational Age in Weeks: 38 Gestational Age in Days: 4 Indication for : desires repeat Other reason for admission: history of stillborn at 39 weeks Admission Nurse Assessment Rev: Yes History of Labs A neg Antibody neg RI RPR NR HBsAg NR HIV NR GC neg GBS unknown Allergies and Home Medications Allergies Coded Allergies: clindamycin (Verified Allergy, Mild, RASH, 04/12/17) venlafaxine (Verified Allergy, Mild, 04/12/17) Penicillins (Verified Allergy, Unknown, 04/12/17) Home Medications Folic Acid 0.4 Mg Tablet, 0.4 MG PO DAILY, (Reported) OB - History Hx of Present Care: Yes Ultrasounds: Normal mid trimester US Obstetrical Complications: None Medical Complications: None Obstetrical History Hx Termination: No Hx Multiple Gestation: No Hx Stillbirth: No Hx Complication: No Hx Induced Hypertens: No Hx Maternal Gestational Diabet: No Delivery History Hx Dystocia: No Hx Large For Gestational Age I: No Hx Small for Gestational Age I: No Hx Section: Yes Hx Vaginal Delivery Post C-Sec: No Hx Blood Disorders: No Adverse Rxn to Tranfusion: No Patient Past Medical History n/a Social History/Family History Recent Infectious Disease Expo: No Sexually Transmitted Disease: No Alcohol Use: Denies Use Recreational Drug Use: No Immunizations Hepatitis A: No Hepatitis B: No Tetanus Booster (TDap): Less than 5yrs OB - Admission Exam Physical Exam Vitals: Vital Signs 04/19/17 06:40 Temp 98.7 Pulse 85 Resp 18 B/P (MAP) 103/56 O2 Delivery Room Air HEENT: NCAT Heart: Rhythm Normal Lungs: Clear Abdomen: Gravid Extremities: Normal Reflexes: Normal Heart Rate: 130's Accelerations: Accelerations Present Decelerations: No Decelerations Short Term Variability: Present Professional Services Specialist Variability: Average (6-25) Contractions on Admission: >10 Minutes Apart Intensity: Mild Labs Laboratory Tests Test 04/19/17 06:15 04/19/17 06:20 Range/Units Urine Color YELLOW Urine Clarity CLEAR Urine pH 6 5-9 Urine Specific [place] 1.015 L 1.016-1.022 Urine Protein NEGATIVE NEGATIVE Urine Glucose (UA) NEGATIVE NEGATIVE Urine Ketones NEGATIVE NEGATIVE Urine Nitrite NEGATIVE NEGATIVE Urine Bilirubin NEGATIVE NEGATIVE Urine Urobilinogen NORMAL NORMAL MG/DL Urine Leukocyte Esterase NEGATIVE NEGATIVE Urine RBC (Auto) NEGATIVE NEGATIVE Urine RBC NONE /HPF Urine WBC 2-5 /HPF Urine Squamous Epithelial Cells 10-25 H /HPF Urine Crystals NONE /LPF Urine Bacteria MODERATE H /HPF Urine Casts NONE /LPF Urine Mucus SMALL H /LPF Urine Culture Indicated YES White Blood Count 10.0 4.3-11.0 10^3/uL Red Blood Count 4.33 L 4.35-5.85 10^6/uL Hemoglobin 12.2 11.5-16.0 G/DL Hematocrit 35 35-52 % Mean Corpuscular Volume 81 80-99 FL Mean Corpuscular Hemoglobin 28 25-34 PG Mean Corpuscular Hemoglobin Concent 35 32-36 G/DL Red Cell Distribution Width 14.3 10.0-14.5 % Platelet Count 236 130-400 10^3/uL Mean Platelet Volume 10.1 7.4-10.4 FL Neutrophils (%) (Auto) 74 42-75 % Lymphocytes (%) (Auto) 16 12-44 % Monocytes (%) (Auto) 8 0-12 % Eosinophils (%) (Auto) 1 0-10 % Basophils (%) (Auto) 0 0-10 % Neutrophils # (Auto) 7.4 1.8-7.8 X 10^3 Lymphocytes # (Auto) 1.6 1.0-4.0 X 10^3 Monocytes # (Auto) 0.8 0.0-1.0 X 10^3 Eosinophils # (Auto) 0.1 0.0-0.3 10^3/uL Basophils # (Auto) 0.0 0.0-0.1 10^3/uL OB - Assessment/Plan/Diagnosis Assessment Assessment: section Plan Plan: Section Other Plan RLTCS with RRS Discharge Diagnosis Diagnosis: 32 yo @ 38.4 weeks Previous section x 3 Hx of Stillbirth at 39 weeks Fam. 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 ANTHONY MOREIRA DO Apr 19, 2017 07:18
[2017-04-19] MEDS ORDERED: OXYTOCIN/NORMAL SALINE 500 ML IV SCH (07:23)
[2017-04-19] MEDS ORDERED: ONDANSETRON 4 MG/2 ML (SDV) Z0FRAN IVP PRN (07:30)
[2017-04-19] MEDS ORDERED: MEASLES,MUMPS,RUBELLA 1 EA INJ SC SCH (07:30)
[2017-04-19] MEDS ORDERED: INFLUENZA TRIvalent 2017-2018 0.5 ML/45 MCG SYR IM ONE (07:30)
[2017-04-19] MEDS ORDERED: HYDROmorphone (DILAUDID) 2 MG/ML VIAL IVP PRN (07:30)
[2017-04-19] MEDS ORDERED: ceFAZolin 2 GM/50 ML NS 50 ML IV ONE (07:30)
[2017-04-19] MEDS ORDERED: TETANUS,DIPTH,PERTUSS P/F (BOOSTRIX) 0.5 ML VIAL IM SCH (07:30)
[2017-04-19] MEDS ORDERED: KETOROLAC 30 MG/ML VIAL ONE (08:25)
[2017-04-19] MEDS ORDERED: PHENYLEPHRINE 100 MCG/ML 10 ML (ANESTHESIA) SYR ONE (08:28)
--- NOTE | 2017-04-19 08:29 | Discharge Inst-Women's Service ---
Discharge Inst-Women's Serv Depart Medication/Instructions New, Converted or Re-Newed RX: RX on Chart Consults/Follow Up Additional Follow Up: Yes Orders/Referrals Dr. Tompkins in 7-[address] Mei in 6 weeks Activity Activity: Activity as Tolerated Driving Instructions: No Driving for 1 Week NO SMOKING: NO SMOKING Nothing Inside Vagina: No Douching, No [place], No Tampons Diet Discharge Diet: No Restrictions Symptoms to Report to : Bleeding Excessive, Pain Increased, Fever Over 101 Degrees F, Vaginal Bleeding Increase, Questions/Concerns For Any Problems or Questions: Contact Your Physician Skin/Wound Care Infection Signs and Symptoms: Increased Redness, Foul Odor of Wound, Increased Drainage, Skin Itchy or Has a Rash, Increased Swelling, Temperature Above 101 F Operative Area Clean and Dry: Keep Incision Clean/Dry Stitches/[place]/Dermabond: Dermabond, Care of Stitches Bathing Instructions: ANTHONY Wilhelm DO Apr 19, 2017 08:29
[2017-04-19] MEDS ORDERED: IBUP-1773 PO (08:30)
[2017-04-19] MEDS ORDERED: HYDR-3812 PO (08:30)
[2017-04-19] MEDS: KETOROLAC 30 MG/ML VIAL IVP SCH ×3 (08:30→22:08)
[2017-04-19] MEDS ORDERED: DOCU100C37 PO (08:30)
[2017-04-19] MEDS ORDERED: NALOXONE 0.4 MG/ML 1 ML (NARCAN) VIAL IV PRN (08:45)
[2017-04-19] MEDS ORDERED: morphine PF (DURAMORPH) 10 MG/10 ML AMP INJ ONE (08:45)
[2017-04-19] MEDS ORDERED: ONDANSETRON 4 MG/2 ML (SDV) Z0FRAN IV PRN (08:45)
[2017-04-19] MEDS ORDERED: fentaNYL INJECTION 100 MCG/2 ML AMP INJ ONE (08:45)
[2017-04-19 10:23] VITALS: BP 112/75
[2017-04-19 11:00] VITALS: BP 108/72
[2017-04-19] MEDS: DOCUSATE SODIUM 100 MG (COLACE) CAP PO SCH ×2 (11:04→20:15)
[2017-04-19] MEDS: HYDROcodone/APAP 5 MG/325 MG (LORTAB) TAB PO PRN ×3 (11:05→20:16)
--- NOTE | 2017-04-19 15:33 | OPERATIVE REPORT ---
DATE OF SERVICE: 04/19/2017 PREOPERATIVE DIAGNOSES: 1. A 32-year-old G5, P3 at 38 weeks and 4 days gestation. 2. Previous section x3. 3. History of stillbirth at term. 4. Family history of gynecologic malignancy. POSTOPERATIVE DIAGNOSES: 1. A 32-year-old G5, P3 at 38 weeks and 4 days gestation. 2. Previous section x3. 3. History of stillbirth at term. 4. Family history of gynecologic malignancy. PROCEDURE: Repeat low transverse section with bilateral risk reducing salpingectomy. SURGEON: Dr. Prakash Moreira. TOWEL SORTER: Altagracia Toscano MS3. ANESTHESIA: Spinal. EBL: 700 mL. URINE OUTPUT: 50 mL clear at the end of the procedure. FLUIDS: 1500 mL lactated Ringer solution. FINDINGS: Live male infant weighing 8 pounds and 6 ounces, Apgars of 8 and 9. Grossly normal-appearing uterus with filmy adhesions of the vesicouterine peritoneum as well as findings of endometriosis implants on the left fallopian tube, mesosalpinx and left ovary. SPECIMENS SENT: Bilateral fallopian tubes. INDICATIONS FOR PROCEDURE: This 32-year-old female had a consultation in my office after seeking care at the [facility] for a repeat . Upon interviewing the patient, she does express to me that she is done with future childbearing as well as has a history of gynecologic malignancy in her family. Due to both of these indications, we discussed risk reducing salpingectomy and agreed to proceed with that at the same time with . Risks of this, as well as the , were reviewed with the patient in detail including risk of bleeding, infection, damage to any surrounding structures including but not limited to bowel, bladder, ureter, kidneys, postoperative hematoma formation, risk of postoperative DVT, risk from anesthesia, need for blood transfusion and risk of blood transfusion and risk of subsequent procedures. After everything was discussed with the patient in detail and all of her questions were answered, consent was obtained in the preoperative area and the patient was taken to the operating room. OPERATIVE REPORT IN DETAIL: Once in the operating room, spinal analgesic was found to be adequate. The patient was placed in supine position with leftward tilt, prepped and draped in normal sterile fashion. A Pfannenstiel skin incision was made through the previously existing scar using the knife after a timeout was performed and anesthesia was tested. The incision was then taken down to the fascia using Bovie cautery. Fascial incision was extended laterally using Bovie cautery. Superior aspect of the fascial incision was then grasped with Zelda clamps, tented upward and dissected off the underlying rectus muscles. The inferior aspect of the fascial incision was then grasped with Zelda clamps, tented upward and dissected off the underlying rectus muscle. Rectus muscles were dissected down the midline using Muñiz scissors, which exposed the peritoneum which entered bluntly and extended with blunt traction. Once the peritoneal access was obtained, Cam ring retractor was placed within the peritoneal incision which offers excellent lateral sidewall retraction. We then performed a low transverse incision to the vesicouterine peritoneum of the lower uterine segment of the uterus. I then bluntly dissected this off the lower uterine segment. I then proceeded with my myotomy until membranes were visualized, at which point, I extended the uterine incision laterally and superiorly using Muñiz scissors. Amniotomy was performed during this process. Clear fluid was noted at the time of rupture of membranes. The infant was found in vertex presentation. The surgeon's hand was placed beneath the head and with gentle fundal pressure, the 's head was delivered up to the incision where it is bulb suctioned, both nares and oropharynx. There is a nuchal cord reduced x2. Anterior, posterior shoulder delivered and the infant was then brought into the operative field. The cord was doubly clamped and cut. Infant was handed off to the awaiting pediatric team in attendance. Cord blood was collected. Three-vessel cord was intact. Placenta was delivered spontaneously thereafter. IV Pitocin was initiated to facilitate uterine contraction. Uterine fundus became firmer with bimanual massage. Uterus was then exteriorized and cleared of all endometrial clots and debris. I then proceeded with closing the uterine incision using 0 Vicryl suture in a running locking fashion. A second layer of imbricating 0 Monocryl was placed. Excellent hemostasis was noted after doing so. I then evaluated the ovary and bilateral fallopian tubes. The following dissection was performed bilaterally on the fallopian tubes, starting by creating a window in the mesosalpinx using Bovie cautery. I take this incision laterally, amputating it from the distal ampullary portion of the mesosalpinx and tying this off using the 3-0 Vicryl suture. I then take this to the proximal isthmic portion of the fallopian tube and suture ligate this as well as using 3-0 Vicryl suture. The fallopian tube itself was then transected using Bovie cautery, which liberates it from its blood supply and I remove it and sent it for pathology. Once this was performed bilaterally and excellent hemostasis was noted from both of my dissection planes, I placed the uterus back in the pelvis and copiously irrigated the pelvis using normal saline. There was no active bleeding noted from any of my dissection planes. I then placed Interceed anti-adhesive material over my low transverse incision and proceeded with closing the peritoneum using 3-0 Vicryl suture in running fashion. The rectus muscles were reapproximated using 3-0 Vicryl suture in interrupted fashion. The fascia was reapproximated using 0 Vicryl suture in running fashion. Subcutaneous tissue was reapproximated using 3-0 plain in an interrupted subcutaneous stitch and skin was reapproximated using 4-0 Monocryl in a running subcuticular. Dermabond was applied to the incision and sterile dressings with adhesive white tape. The patient tolerated the procedure well and sent to recovery in stable condition. Lap and sponge count was correct at the end of the procedure. Instrument counts were correct as well. Lap and sponge counts were correct at the end of the procedure. Instrument counts were correct as well. Two grams of Ancef was given preoperatively for infection prophylaxis. The patient was taken to recovery in stable condition. Job ID: [id number] DocumentID: [id number] Dictated Date: 04/19/2017 08:23:10 Criminal Intelligence Analyst Date: 04/19/2017 14:15:16 Dictated By: PRAKASH MOREIRA DO
[2017-04-19 16:00] VITALS: BP 104/59
[2017-04-19 20:17] VITALS: BP 100/55
[2017-04-19] MEDS: CATHETER FLUSH 10 ML SYR IV SCH (22:08)
[2017-04-20 00:20] VITALS: BP 96/57
[2017-04-20] MEDS: KETOROLAC 30 MG/ML VIAL IVP SCH (03:59)
[2017-04-20 04:00] VITALS: BP 96/60
[2017-04-20] MEDS: CATHETER FLUSH 10 ML SYR IV SCH ×2 (04:00→06:43)
[2017-04-20 06:30] LABS: BASOPHILS % (AUTO) 0 % (0-10); EOSINOPHILS # (AUTO) 0.2 10^3/uL (0.0-0.3); EOSINOPHILS % (AUTO) 2 % (0-10); LYMPHOCYTES # (AUTO) 1.3 X 10^3 (1.0-4.0); LYMPHOCYTES % (AUTO) 14 % (12-44); MEAN CORPUSCULAR HEMOGLOBIN 28 PG (25-34); MEAN CORPUSCULAR HGB CONC 34 G/DL (32-36); MEAN CORPUSCULAR VOLUME 83 FL (80-99); MEAN PLATELET VOLUME 9.7 FL (7.4-10.4); MONOCYTES # (AUTO) 0.8 X 10^3 (0.0-1.0); MONOCYTES % (AUTO) 9 % (0-12); NEUTROPHILS % (AUTO) 75 % (42-75); PLATELET COUNT 187 10^3/uL (130-400); RED BLOOD COUNT 3.77 10^6/uL (4.35-5.85); RED CELL DISTRIBUTION WIDTH 14.5 % (10.0-14.5); WHITE BLOOD COUNT 9.3 10^3/uL (4.3-11.0)
[2017-04-20] MEDS: HYDROcodone/APAP 5 MG/325 MG (LORTAB) TAB PO PRN ×4 (06:43→23:14)
[2017-04-20] MEDS ORDERED: INFLUENZA TRIvalent 2017-2018 0.5 ML/45 MCG SYR IM ONE (08:06)
[2017-04-20] MEDS: DOCUSATE SODIUM 100 MG (COLACE) CAP PO SCH ×2 (08:17→22:32)
[2017-04-20 08:19] VITALS: BP 104/65
[2017-04-20] MEDS ORDERED: FERROUS SULF 325 MG (IRON) TAB PO ONE (08:21)
--- NOTE | 2017-04-20 08:29 | Progress Note-Standard ---
Standard Progress Note Progress Notes/Assess & Plan Date Seen by Provider: Apr 20, 2017 Time Seen by Provider: 08:15 Progress/Assessment & Plan Patient doing well, no concerns voiced. Pain well controlled, ambulating and voiding freely. Vital Sign - Last 24 Hours 04/19/17 04/19/17 04/19/17 04/19/17 10:23 11:00 16:00 20:17 Temp 98.6 99.3 97.2 99.2 Pulse 75 78 81 74 Resp 18 18 18 18 B/P (MAP) 112/75 108/72 104/59 100/55 Pulse Ox 97 95 96 O2 Delivery Room Air Room Air Room Air Room Air 04/20/17 04/20/17 00:20 04:00 Temp 98.4 96.8 Pulse 75 71 Resp 16 16 B/P (MAP) 96/57 96/60 Pulse Ox 96 97 O2 Delivery Room Air Room Air Incision: c/d/i Laboratory Tests Test 04/20/17 06:10 Range/Units White Blood Count 9.3 4.3-11.0 10^3/uL Red Blood Count 3.77 L 4.35-5.85 10^6/uL Hemoglobin 10.5 L 11.5-16.0 G/DL Hematocrit 31 L 35-52 % Mean Corpuscular Volume 83 80-99 FL Mean Corpuscular Hemoglobin 28 25-34 PG Mean Corpuscular Hemoglobin Concent 34 32-36 G/DL Red Cell Distribution Width 14.5 10.0-14.5 % Platelet Count 187 130-400 10^3/uL Mean Platelet Volume 9.7 7.4-10.4 FL Neutrophils (%) (Auto) 75 42-75 % Lymphocytes (%) (Auto) 14 12-44 % Monocytes (%) (Auto) 9 0-12 % Eosinophils (%) (Auto) 2 0-10 % Basophils (%) (Auto) 0 0-10 % Neutrophils # (Auto) 7.0 1.8-7.8 X 10^3 Lymphocytes # (Auto) 1.3 1.0-4.0 X 10^3 Monocytes # (Auto) 0.8 0.0-1.0 X 10^3 Eosinophils # (Auto) 0.2 0.0-0.3 10^3/uL Basophils # (Auto) 0.0 0.0-0.1 10^3/uL Diagnosis: POD 1 RLTCS w/ B/L RRS Acute blood loss anemia P: Continue routine PO care Encourage ambulation and breast feeding Replace iron ANTHONY MOREIRA DO Apr 20, 2017 08:29
[2017-04-20] MEDS ORDERED: FERR-74 PO (08:30)
[2017-04-20] MEDS: FERROUS SULF 325 MG (IRON) TAB PO SCH (08:30)
[2017-04-20] MEDS: IBUPROFEN 600 MG (MOTRIN) TAB PO SCH ×3 (11:26→22:32)
--- NOTE | 2017-04-20 13:31 | Anesthesia-Regional Post-Op ---
Regional Patient Condition Mental Status: Alert, Oriented x3 Circulation: Same as Pre-Op Headache: Absent Sensation: Full Recovery Motor Block: Absent Post Op Complications Complications None Follow Up Care/Instructions Patient Instructions None needed. Anesthesia/Patient Condition Patient is doing well, no complaints, stable vital signs, no apparent adverse anesthesia problems. No complications reported per nursing. BRICE ROJAS CRNA Apr 20, 2017 13:31
[2017-04-20 15:46] VITALS: BP 112/68
[2017-04-20 22:32] VITALS: BP 92/54
[2017-04-21 05:04] VITALS: BP 104/70
[2017-04-21] MEDS: IBUPROFEN 600 MG (MOTRIN) TAB PO SCH ×2 (05:04→11:37)
[2017-04-21 08:00] VITALS: BP 108/63
[2017-04-21] MEDS: DOCUSATE SODIUM 100 MG (COLACE) CAP PO SCH (08:38)
[2017-04-21] MEDS: FERROUS SULF 325 MG (IRON) TAB PO SCH (08:39)
[2017-04-21] MEDS: HYDROcodone/APAP 5 MG/325 MG (LORTAB) TAB PO PRN (08:51)
--- NOTE | 2017-04-21 09:45 | Progress Note-Standard ---
Standard Progress Note Progress Notes/Assess & Plan Date Seen by Provider: Apr 21, 2017 Time Seen by Provider: 08:30 Progress/Assessment & Plan Patient doing well, no concerns voiced. Pain well controlled, ambulating and voiding freely. Vital Sign - Last 24 Hours 04/20/17 04/20/17 04/21/17 15:46 22:32 05:04 Temp 97.0 98.0 98.9 Pulse 68 72 76 Resp 18 18 18 B/P (MAP) 112/68 92/54 104/70 Pulse Ox 97 97 98 O2 Delivery Room Air Room Air Room Air Incision: c/d/i Diagnosis: POD 2 RLTCS w/ B/L RRS Acute blood loss anemia P: Continue routine PO care Encourage ambulation and breast feeding Replace iron ANTHONY MOREIRA DO Apr 21, 2017 9:45 am
[2017-04-21 11:30] VITALS: BP 121/63
[2017-04-21 13:25] VITALS: BP 121/63
== END 2017-04-21 13:25 | disposition home or self-care (01) | DRG 765 ==
LOC: LDRP 05:56
PROVIDERS: ADMIT Family Medicine; ATTEND Obstetrics & Gynecology
PROC: 0UT70ZZ Resection of Bilateral Fallopian Tubes, Open Approach (ICD-10-PCS; 2017-04-19)
PROC: 10D00Z1 Extraction of Products of Conception, Low, Open Approach (ICD-10-PCS; principal; 2017-04-19 07:14)
DX: O34.211 Maternal care for low transverse scar from previous cesarean delivery (principal); O90.81 Anemia of the puerperium; D62 Acute posthemorrhagic anemia; O26.893 Other specified pregnancy related conditions, third trimester; N80.2 Endometriosis of fallopian tube; N80.1 Endometriosis of ovary; Z3A.38 38 weeks gestation of pregnancy; Z23 Encounter for immunization; Z37.0 Single live birth
CPT/HCPCS: 36415; 81000; 83033; 85025; 86850; 86900; 86901; 87088; 90715; 94664

== ENCOUNTER 2019-05-18 11:24 | Emergency (ER) | payer MEDICAID ==
[~2019-05-18] VITALS: Ht 170 cm; Wt 100.0 kg
[~2019-05-18 11:24] MED LIST changes: +ACHD5005 PO; -CITRIC ACID/SOB CIT (BICITRA) 30 ML UDC ONE; +DOCU100C37 PO; -FAMOTIDINE 20MG/2ML IV (PEPCID) ONE; +FERR325T18 PO; +IBUP-1773 PO; -METOCLOPRAMIDE INJ 10 MG/2 ML (REGLAN) ONE; -ceFAZolin 2 GM/50 ML NS 50 ML ONE
--- NOTE | 2019-05-18 11:57 | ED Integumentary General ---
General Chief Complaint: Skin/Wound Problems Stated Complaint: SHOULDER SURGERY,SUTURE AREA INFECTED Nursing Triage Note: pt had shoulder surgery 13 days ago and stitches are still in. pt reports pain at wound sites and pus-like drainage from main surgical spot. upon inspection, stitches appear dry and no drainage noted but the area is reddened and tender to touch. Source: patient Exam Limitations: no limitations History of Present Illness Date Seen by Provider: May 18, 2019 Time Seen by Provider: 11:57 Initial Comments 34-year-old female patient presents with complaints of possible infection to the surgical incisions. Patient reports having right shoulder surgery [address] Amezcua. Patient is scheduled to see him on Wednesday for recheck. She reports noticing "pus-like drainage" from one of the anterior shoulder sutures. Timing/Duration: this morning Modifying Factors: worse with other (increased tenderness with palpation at the incision sites) Associated Symptoms: No blisters, No edema, No fever, No hives, No malaise, No numbness, No paresthesia, No petechiae, No rash, No swelling/mass/lumps Allergies and Home Medications Allergies Coded Allergies: clindamycin (Verified Allergy, Mild, RASH, 04/12/17) venlafaxine (Verified Allergy, Mild, 04/12/17) Penicillins (Verified Allergy, Unknown, 04/12/17) Home Medications Docusate Sodium 100 Mg Capsule, 100 MG PO BID PRN for CONSTIPATION-1ST LINE Prescribed by: ANTHONY MOREIRA on 04/19/17 0830 Ferrous Sulfate 325 Mg Tablet, 325 MG PO DAILY Prescribed by: ANTHONY MOREIRA on 04/20/17 0830 Folic Acid 0.4 Mg Tablet, 0.4 MG PO DAILY, (Reported) Hydrocodone Bit/Acetaminophen 1 Each Tablet, 1-2 TAB PO Q4H PRN for PAIN- MODERATE Prescribed by: ANTHONY MOREIRA on 04/19/17 0830 Hydrocodone Bit/Acetaminophen 1 Tab Tab, 1 EACH PO Q6H PRN for PAIN-MODERATE Prescribed by: CAROLA MCGUIRE on 05/18/19 1234 Ibuprofen 600 Mg Tablet, 600 MG PO Q6H Prescribed by: ANTHONY MOREIRA on 04/19/17 0830 Sulfamethoxazole/Trimethoprim 1 Each Tablet, 1 EACH PO BID Prescribed by: CAROLA MCGUIRE on 05/18/19 1215 Patient Home Medication List Home Medication List Reviewed: Yes Review of Systems Review of Systems Constitutional: No chills, No fever, No malaise EENTM: no symptoms reported Respiratory: no symptoms reported Cardiovascular: no symptoms reported Gastrointestinal: no symptoms reported Musculoskeletal: see HPI Skin: see HPI Psychiatric/Neurological: No Symptoms Reported All Other Systems Reviewed Negative Unless Noted: Yes (Negative excepted noted.) Past Anawrcq-Dhbjvu-Yeyzii Hx Past Med/Social Hx: Reviewed Nursing Past Med/Soc Hx Patient Social History Alcohol Use: Denies Use Recreational Drug Use: No 2nd Hand Smoke Exposure: No Recent Foreign Travel: No Contact w/Someone Who Travel: No Recent Infectious Disease Expo: No Recent Hopitalizations: No Immunizations Up To Date Tetanus Booster (TDap): Unknown Seasonal Allergies Seasonal Allergies: No Past Medical History Surgeries: Yes Section, Gallbladder, Orthopedic (right shoulder surgery 2 weeks ago) Respiratory: No Asthma Cardiac: No Syncope Neurological: No Concussion, Parkinson's Disease, Traumatic Brain Injury Reproductive Disorders: No Female Reproductive Disorders: Denies Sexually Transmitted Disease: No Genitourinary: No Gastrointestinal: No Musculoskeletal: No Endocrine: No HEENT: No Loss of Vision: Denies Hearing Impairment: Denies Cancer: No Psychosocial: Yes Anxiety, Depression Integumentary: No Blood Disorders: No Adverse Reaction/Blood Tranf: No Family Medical History Reviewed Nursing Family Hx Patient reports no known family medical history. No Pertinent Family Hx Physical Exam Vital Signs Vital Signs - First Documented 05/18/19 11:34 Temp 36.9 Pulse 82 Resp 18 B/P (MAP) 119/60 (79) Pulse Ox 99 O2 Delivery Room Air Capillary Refill : Less Than 3 Seconds General Appearance: WD/WN, no apparent distress HEENT: PERRL/EOMI, pharynx normal Neck: supple, normal inspection Cardiovascular: normal peripheral pulses, regular rate, rhythm, no murmur Respiratory: lungs clear, normal breath sounds, no respiratory distress, no accessory muscle use Extremities: no pedal edema, normal capillary refill, inflammation (faint erythema noted to the right anterior and superior shoulder incision sites. Sutures intact. No purulent drainage or serosanguineous drainage noted. Incisions healing nicely. Right posterior incision site negative for cellulitis or drainage.), other (ROM not tested r/t patient reporting restrictions since surgery. mild soft tissue tenderness to the rt anterior incision site.) Neurologic/Psychiatric: alert, normal mood/affect, oriented x 3 Skin: normal color, warm/dry, other (faint erythema noted to the right anterior and superior shoulder incision sites. Sutures intact. No purulent drainage or serosanguineous drainage noted. Incisions healing nicely. Right posterior incision site negative for cellulitis or drainage.) Skin Problem Character: erythema, tenderness Progress/Results/Core Measures Results/Orders My Orders Orders - CAROLA MCGUIRE Rx-Hydrocodone/Apap 5-325 Mg (Rx-Vicodin (05/18/19 12:45) Rx-Trimeth/Sulfameth Ds Tab (Rx-Bactrim/ (05/18/19 12:34) Vital Signs/I&O 05/18/19 11:34 Temp 36.9 Pulse 82 Resp 18 B/P (MAP) 119/60 (79) Pulse Ox 99 O2 Delivery Room Air Blood Pressure Mean: 79 POS Departure Communication (Admissions) Patient seen and evaluated. Case discussed with Dr. Amezcua. Sutures removed at the time of exam and replaced with Mastisol and Steri-Strips. Plan for discharge to home with oral bactrim ds. Follow-up Wednesday with Dr. Amezcua as scheduled. Impression Primary Impression: Cellulitis Qualified Codes: L03.113 - Cellulitis of right upper limb Additional Impression: S/P arthroscopy of right shoulder Disposition: 01 HOME, SELF-CARE Condition: Improved Departure-Patient Inst. Decision time for Depature: 12:14 Referrals: ANTONIO PATEL APRN (PCP) Primary Care Physician ANTHONY AMEZCUA MD Patient Instructions: Cellulitis (Skin Infection), Adult (DC) Add. Discharge Instructions: All discharge instructions reviewed with patient and/or family. Voiced understanding. Medications as instructed. Continue all orders as instructed by Dr. Amezcua. You may use an ice pack or warm pack as needed for pain. Shower with antibacterial soap. Follow-up with Dr. Amezcua as scheduled. Return to the emergency department for worsened symptoms or any other concerns. Scripts Hydrocodone Bit/Acetaminophen (Hydrocodone/Acetaminophen 5/325mg Tablet) 1 Tab Tab 1 EACH PO Q6H PRN for PAIN-MODERATE MDD 10, #10 TAB 0 Refills Prov: CAROLA MCGUIRE 05/18/19 Sulfamethoxazole/Trimethoprim (Bactrim Ds Tablet) 1 Each Tablet 1 EACH PO BID, #14 TAB 0 Refills Prov: CAROLA MCGUIRE 05/18/19 CAROLA MCGUIRE May 18, 2019 11:57 POS
[2019-05-18] MEDS ORDERED: SULF1TAB35 PO (12:15)
[2019-05-18] MEDS ORDERED: ACHD5005 PO (12:34)
[2019-05-18] MEDS ORDERED: RX-TRIMETH/SULFA. 160-800 MG (BACTRIM DS) TAB PPK#2 PO STA (12:34)
[2019-05-18] MEDS ORDERED: RX-HYDROCODONE/APAP 5/325 MG #4 TAB PK PO PRN (12:45)
[2019-05-18 12:51] VITALS: BP 105/69
== END 2019-05-18 12:57 | disposition home or self-care (01) ==
LOC: EDUNIT# 11:24 → ER 11:25
DX: L03.113 Cellulitis of right upper limb (principal); J45.909 Unspecified asthma, uncomplicated; G20 Parkinson's disease; F41.9 Anxiety disorder, unspecified; F32.9 Major depressive disorder, single episode, unspecified; Z88.1 Allergy status to other antibiotic agents; Z88.0 Allergy status to penicillin; Z88.8 Allergy status to other drugs, medicaments and biological substances; Z98.890 Other specified postprocedural states
CPT/HCPCS: 99283

== ENCOUNTER 2019-08-21 16:10 | Emergency (ER) | payer MEDICAID ==
[~2019-08-21] VITALS: Ht 170.1 cm; Wt 102.0 kg
[~2019-08-21 16:10] MED LIST changes: +SULF1TAB35 PO
--- NOTE | 2019-08-21 17:00 | ED Upper Extremity ---
General Chief Complaint: Upper Extremity Stated Complaint: FELL,HAND/WRIST PAIN Nursing Triage Note: fell last night and has bruising to R hand Nursing Sepsis Screen: No Definite Risk Source: patient Exam Limitations: no limitations History of Present Illness Date Seen by Provider: Aug 21, 2019 Time Seen by Provider: 17:00 Initial Comments To ER with reports of a fall last night while carrying her son, bruising to the dorsal right hand with pain with range of motion of the fingers. Onset: yesterday Severity: moderate Pain/Injury Location: right hand Method of Injury: fell Modifying Factors: Worse With Movement Allergies and Home Medications Allergies Coded Allergies: clindamycin (Verified Allergy, Mild, RASH, 04/12/17) venlafaxine (Verified Allergy, Mild, 04/12/17) Penicillins (Verified Allergy, Unknown, 04/12/17) Home Medications Docusate Sodium 100 Mg Capsule, 100 MG PO BID PRN for CONSTIPATION-1ST LINE Prescribed by: ANTHONY MOREIRA on 04/19/17 0830 Ferrous Sulfate 325 Mg Tablet, 325 MG PO DAILY Prescribed by: ANTHONY MOREIRA on 04/20/17 0830 Folic Acid 0.4 Mg Tablet, 0.4 MG PO DAILY, (Reported) Hydrocodone Bit/Acetaminophen 1 Each Tablet, 1-2 TAB PO Q4H PRN for PAIN- MODERATE Prescribed by: ANTHONY MOREIRA on 04/19/17 0830 Hydrocodone Bit/Acetaminophen 1 Tab Tab, 1 EACH PO Q6H PRN for PAIN-MODERATE Prescribed by: CAROLA MCGUIRE on 05/18/19 1234 Ibuprofen 600 Mg Tablet, 600 MG PO Q6H Prescribed by: ANTHONY MOREIRA on 04/19/17 0830 Sulfamethoxazole/Trimethoprim 1 Each Tablet, 1 EACH PO BID Prescribed by: CAROLA MCGUIRE on 05/18/19 1215 Patient Home Medication List Home Medication List Reviewed: Yes Review of Systems Constitutional: see HPI EENTM: see HPI Respiratory: no symptoms reported Cardiovascular: no symptoms reported Genitourinary: no symptoms reported Musculoskeletal: see HPI Skin: no symptoms reported Psychiatric/Neurological: No Symptoms Reported Past Obwjqsy-Idrttd-Rzoqwk Hx Patient Social History Alcohol Use: Denies Use Recreational Drug Use: No 2nd Hand Smoke Exposure: No Recent Foreign Travel: No Contact w/Someone Who Travel: No Recent Infectious Disease Expo: No Recent Hopitalizations: No Immunizations Up To Date Tetanus Booster (TDap): Unknown Seasonal Allergies Seasonal Allergies: No Past Medical History Surgeries: Yes Section, Gallbladder, Orthopedic Respiratory: No Asthma Cardiac: No Syncope Neurological: No Concussion, Parkinson's Disease, Traumatic Brain Injury Reproductive Disorders: No Female Reproductive Disorders: Denies Sexually Transmitted Disease: No Genitourinary: No Gastrointestinal: No Musculoskeletal: No Endocrine: No HEENT: No Loss of Vision: Denies Hearing Impairment: Denies Cancer: No Psychosocial: Yes Anxiety, Depression Integumentary: No Blood Disorders: No Adverse Reaction/Blood Tranf: No Family Medical History Patient reports no known family medical history. No Pertinent Family Hx Physical Exam Vital Signs Vital Signs - First Documented 08/21/19 16:23 Temp 36.9 Pulse 95 Resp 18 B/P (MAP) 142/83 (102) Capillary Refill : Less Than 3 Seconds Height, Weight, BMI Height: 5'7.00" Weight: 229lbs. 6.0oz. 104.425383ym; 35.00 BMI Method:Stated General Appearance: WD/WN, no apparent distress HEENT: PERRL/EOMI, normal ENT inspection Respiratory: no respiratory distress, no accessory muscle use Gastrointestinal: normal bowel sounds, non tender Shoulder: normal inspection, non-tender Elbow/Forearm: normal inspection, non-tender Wrist: Yes normal inspection, Yes non-tender Hand: Right Neurologic/Tendon: normal sensation, normal motor functions Neurologic/Psychiatric: alert, normal mood/affect, oriented x 3 Skin: normal color, warm/dry Progress/Results/Core Measures Results/Orders My Orders Orders - ORION PETTIT APRN Hand, Right, 3 Views (08/21/19 16:52) Vital Signs/I&O 08/21/19 16:23 Temp 36.9 Pulse 95 Resp 18 B/P (MAP) 142/83 (102) Blood Pressure Mean: 102 Departure Impression Primary Impression: Contusion of hand Qualified Codes: S60.221A - Contusion of right hand, initial encounter Disposition: HOME, SELF-CARE Condition: Stable Departure-Patient Inst. Decision time for Depature: 17:02 Referrals: ANTONIO PATEL APRN (PCP/Family) Primary Care Physician Patient Instructions: Contusion (DC) Add. Discharge Instructions: 1. Return to ER for any concerns 2. Follow-up with her doctor next week All discharge instructions reviewed with patient and/or family. Voiced understanding. ORION PETTIT APRN Aug 21, 2019 17:00
--- NOTE | 2019-08-21 17:07 | Diagnostic Imaging Report ---
INDICATION: Fall. Right hand pain. FINDINGS: 3 views. There is no fracture or dislocation. Articulating surfaces are smooth. Joint spaces are well-maintained. No radiopaque foreign bodies. IMPRESSION: Normal right hand. Dictated by: Dictated on workstation # [id number]
[2019-08-21 17:14] VITALS: BP 142/83
== END 2019-08-21 17:22 | disposition home or self-care (01) ==
LOC: EDUNIT# 16:10 → ER 16:13
DX: S60.221A Contusion of right hand, initial encounter (principal); Z88.1 Allergy status to other antibiotic agents; Z88.0 Allergy status to penicillin; Z88.8 Allergy status to other drugs, medicaments and biological substances; W19.XXXA Unspecified fall, initial encounter
CPT/HCPCS: 73130

== ENCOUNTER 2021-10-11 12:08 | Emergency (ER) | payer MEDICAID ==
[~2021-10-11] VITALS: Ht 172 cm; Wt 83.9 kg
[~2021-10-11 12:08] MED LIST changes: -FOLI0.4T2 PO; +FOLI0.4T6 PO; -SULF1TAB35 PO; +SULF1TAB38 PO
[2021-10-11] MEDS ORDERED: KETOROLAC 30 MG/ML VIAL IVP STA (13:07)
--- NOTE | 2021-10-11 13:08 | ED GU-Female ---
General Chief Complaint: Abdominal/GI Problems Stated Complaint: LOWER ABD PAIN Nursing Triage Note: PT PRESENTS TO ED VIA POV FROM HOME WITH COMPLAINTS OF LOW ABDOMINAL PAIN AND DIFFICULTY WITH URINATION AFTER HAVING INTERCOURSE LAST NIGHT History of Present Illness Date Seen by Provider: Oct 11, 2021 Time Seen by Provider: 12:58 Initial Comments Patient is a 36-year-old female who presents to the emergency room with a chief complaint of low pelvic pain. Patient states she had sex with her last night and shortly afterwards developed severe bilateral low pelvic pain. She denies vaginal bleeding. No burning with urination or abnormal vaginal discharge. She has never had pain quite like this before. She states she was h ardly able to sleep secondary to the pain last night. She has never had a history of ovarian cyst that she is aware of. She has had 4 prior pregnancies with 3 deliveries. She took her morning naproxen and states the pain is slightly better today. She was concerned that it was continuous and therefore presented to the emergency department for evaluation. She denies any problems with bowel or bladder. No fevers, chills, nausea or vomiting. Patient states that she has had both fallopian tubes removed. All other review of systems reviewed and negative except as stated. Timing/Duration: other (last night) Severity/Quality: severe Location: other (pelvic) Radiation: none Activities at Onset: sexual activity Prior Genitourinary Problems: none Sexual [place] History: single partner Modifying Factors: Worsens With Movement Associated Symptoms: denies symptoms, lower back pain Allergies and Home Medications Allergies Coded Allergies: clindamycin (Verified Allergy, Mild, RASH, 04/12/17) venlafaxine (Verified Allergy, Mild, 04/12/17) Penicillins (Verified Allergy, Unknown, 04/12/17) Patient Home Medication List Home Medication List Reviewed: Yes Docusate Sodium (Docusate Sodium) 100 Mg Capsule, 100 MG PO BID PRN for CONSTIPATION-1ST LINE Prescribed by: ANTHONY TOMPKINS on 04/19/17 0830 Ferrous Sulfate (Ferrous Sulfate) 325 Mg Tablet, 325 MG PO DAILY Prescribed by: ANTHONY TOMPKINS on 04/20/17 0830 Folic Acid (Folic Acid) 0.4 Mg Tablet, 0.4 MG PO DAILY, (Reported) Entered as Reported by: SIMONE SANCHEZ on 12/31/16 1343 Hydrocodone Bit/Acetaminophen (Lortab 5 Mg Tablet) 1 Each Tablet, 1-2 TAB PO Q4H PRN for PAIN-MODERATE Prescribed by: ANTHONY TOMPKINS on 04/19/17 0830 Hydrocodone Bit/Acetaminophen (Lortab 5 Mg Tablet) 1 Tab Tab, 1 EACH PO Q6H PRN for PAIN-MODERATE Prescribed by: CAROLA MCGUIRE on 05/18/19 1234 Hydrocodone/Acetaminophen (Hydrocodone-Acetamin 5-325 mg) 5 Mg-325 Mg Tablet, 1 TAB PO Q6H PRN for PAIN-MODERATE (5-7) Prescribed by: ERIC ZELAYA on 10/11/21 1526 Ibuprofen (Ibuprofen) 600 Mg Tablet, 600 MG PO Q6H Prescribed by: ANTHONY TOMPKINS on 04/19/17 0830 Sulfamethoxazole/Trimethoprim (Bactrim Ds Tablet) 1 Each Tablet, 1 EACH PO BID Prescribed by: CAROLA MCGUIRE on 05/18/19 1215 Review of Systems Review of Systems Constitutional: see HPI EENTM: no symptoms reported Respiratory: no symptoms reported Cardiovascular: no symptoms reported Gastrointestinal: abdominal pain Genitourinary: other (pelvic pain) LMP: Sep 20, 2021 Musculoskeletal: no symptoms reported Skin: no symptoms reported All Other Systemes Reviewed Negative Unless Noted: Yes Past Zobkhaw-Soaqjc-Acbypm Hx Patient Social History Tobacco Use?: No Substance use?: No Alcohol Use?: No Pt feels they are or have been: No Immunizations Up To Date Tetanus Booster (TDap): Unknown Seasonal Allergies Seasonal Allergies: No Past Medical History Surgeries: Yes Section, Gallbladder, Orthopedic Respiratory: No Asthma Cardiac: No Syncope Neurological: No Concussion, Parkinson's Disease, Traumatic Brain Injury Reproductive Disorders: No Female Reproductive Disorders: Denies Sexually Transmitted Disease: No Genitourinary: No Gastrointestinal: No Musculoskeletal: No Endocrine: No HEENT: No Loss of Vision: Denies Hearing Impairment: Denies Cancer: No Psychosocial: Yes Anxiety, Depression Integumentary: No Blood Disorders: No Adverse Reaction/Blood Tranf: No Family Medical History Patient reports no known family medical history. No Pertinent Family Hx Physical Exam Vital Signs Vital Signs - First Documented 10/11/21 12:42 Temp 36.8 Pulse 88 Resp 18 B/P (MAP) 135/73 (93) Pulse Ox 100 Capillary Refill : Less Than 3 Seconds Height, Weight, BMI Height: 5'7.00" Weight: 229lbs. 6.0oz. 104.475858hj; 28.00 BMI Method:Stated General Appearance: WD/WN, mild distress HEENT: PERRL/EOMI Neck: full range of motion, normal inspection Cardiovascular: regular rate, rhythm Respiratory: lungs clear, normal breath sounds, no respiratory distress, no accessory muscle use Gastrointestinal: normal bowel sounds, soft, tenderness (diffuse pelvic tenderness; no rebound) Back: no CVA tenderness Extremities: normal range of motion Neurologic/Psychiatric: alert, normal mood/affect, oriented x 3 Skin: normal color, warm/dry Progress/Results/Core Measures Suspected Sepsis SIRS Temperature: Pulse: 88 Respiratory Rate: 18 Laboratory Tests 10/11/21 13:31: White Blood Count 6.1 Blood Pressure 135 /73 Mean: 93 Laboratory Tests 10/11/21 13:31: Platelet Count 228 Results/Orders Lab Results Laboratory Tests Test 10/11/21 13:31 Range/Units White Blood Count 6.1 4.3-11.0 10^3/uL Red Blood Count 4.24 3.80-5.11 10^6/uL Hemoglobin 12.4 11.5-16.0 g/dL Hematocrit 37 35-52 % Mean Corpuscular Volume 86 80-99 fL Mean Corpuscular Hemoglobin 29 25-34 pg Mean Corpuscular Hemoglobin Concent 34 32-36 g/dL Red Cell Distribution Width 12.9 10.0-14.5 % Platelet Count 228 130-400 10^3/uL Mean Platelet Volume 9.5 9.0-12.2 fL Immature Granulocyte % (Auto) 0 % Neutrophils (%) (Auto) 58 42-75 % Lymphocytes (%) (Auto) 28 12-44 % Monocytes (%) (Auto) 9 0-12 % Eosinophils (%) (Auto) 3 0-10 % Basophils (%) (Auto) 1 0-10 % Neutrophils # (Auto) 3.5 1.8-7.8 10^3/uL Lymphocytes # (Auto) 1.7 1.0-4.0 10^3/uL Monocytes # (Auto) 0.6 0.0-1.0 10^3/uL Eosinophils # (Auto) 0.2 0.0-0.3 10^3/uL Basophils # (Auto) 0.1 0.0-0.1 10^3/uL Immature Granulocyte # (Auto) 0.0 0.0-0.1 10^3/uL My Orders Orders - ERIC ZELAYA MD Urine Bedside (10/11/21 13:07) Ed Iv/Invasive Line Start (10/11/21 13:07) Cbc With Automated Diff (10/11/21 13:07) Ketorolac Injection (Toradol Injection) (10/11/21 13:07) Us Pelvic (Non Ob)[id number] (10/11/21 13:07) Vital Signs/I&O 10/11/21 12:42 Temp 36.8 Pulse 88 Resp 18 B/P (MAP) 135/73 (93) Pulse Ox 100 Capillary Refill : Less Than 3 Seconds Blood Pressure Mean: 93 Progress Note : Time: 15:23 Progress Note Patient states pain is steadily improving. Ultrasound reveals complex appearing mass consistent with probable involuting hemorrhagic cyst of 3.5 cm in the left ovary with mild free pelvic fluid. Intact blood flow to both ovaries. Her labs have been reviewed and are within normal limits. She states she thinks she might need a little bit of pain medicine for home which I think is reasonable se condary to the free fluid. She has no fever or concern for infectious process. She declined urinalysis at this time stating she has no symptoms which I agree with. We will send her home with instructions to follow-up with Dr. Tompkins with whom she has had previous care in 6 weeks for possible repeat ultrasound. She is agreeable with this plan of care. All questions are sought and answered. Patient is stable for discharge. Diagnostic Imaging Diagonstic Imaging: Ultrasound Comments [facility], [place] NAME: ALYSHABONNIE D [facility] REC#: [id number] PT STATUS: REG ER : 1985 PHYSICIAN: ERIC ZELAYA MD ADMIT DATE: 10/11/21/ER Draft Date of Exam:10/11/21 US PELVIC (NON OB)[id number] PROCEDURE: US PELVIC (NON OB) TECHNIQUE: Multiple real-time grayscale images were obtained over the pelvis in various projections transabdominally. INDICATION: Acute pelvic pain. FINDINGS: Uterus is anteverted measuring 10.3 x 5.3 x 7.4 cm. No myometrial mass is detected. Endometrium is 11 mm in thickness. Right ovary measures 3.0 x 2.3 x 3.0 cm and left ovary measures 4.9 x 3.7 x 4.6 cm. Right ovary does contain a 2.5 x 1.6 x 1.9 cm cyst. There is blood flow to the right ovary. Left ovary contains a complex mass measuring 3.5 x 2.8 x 3.2 cm, most suggestive of a hemorrhagic cyst. There is some free fluid in the posterior cul-de-sac. IMPRESSION: 1. Probable hemorrhagic cyst in the left ovary of approximately 3.5 cm in size as well as a simple cyst in the right ovary of 2.5 cm in size. No other significant abnormality is detected. Dictated on workstation # [id number] Dict: 10/11/21 1406 Trans: 10/11/21 1412 [id number] [id number] Interpreted by: VIDHI ECHEVERRIA MD Electronically signed by: Departure Impression Primary Impression: Pelvic pain Additional Impression: Hemorrhagic cyst of left ovary Disposition: HOME, SELF-CARE Condition: Improved Departure-Patient Inst. Decision time for Depature: 15:25 Referrals: ANTHONY TOMPKINS HOLLY R MD (PCP/Family) Primary Care Physician Patient Instructions: Pelvic Pain ED Add. Discharge Instructions: Continue your naproxen as needed for pain. I have written you a prescription for hydrocodone, you can take 1 if the pain worsens. This can make you sleepy. Do not drive and take this medication. If you develop a fever, worsening pain especially with nausea and vomiting or passing blood in your stools or any other emergent concerning symptoms please come back to the emergency room for reevaluation. Please follow-up with Dr. Tompkins, you may need free ultrasounded within the next 6 weeks or so. Scripts Hydrocodone/Acetaminophen (Hydrocodone-Acetamin 5-325 mg) 5 Mg-325 Mg Tablet 1 TAB PO Q6H PRN for PAIN-MODERATE (5-7), #8 TAB Prov: ERIC ZELAYA MD 10/11/21 Copy Copies To 1: ANTHONY TOMPKINS DO; KWAME DAVIS MD, KATHRYN M MD Oct 11, 2021 13:08
[2021-10-11 13:36] LABS: BASOPHILS # (AUTO) 0.1 10^3/uL (0.0-0.1); BASOPHILS % (AUTO) 1 % (0-10); EOSINOPHILS # (AUTO) 0.2 10^3/uL (0.0-0.3); EOSINOPHILS % (AUTO) 3 % (0-10); HEMATOCRIT 37 % (35-52); HEMOGLOBIN 12.4 g/dL (11.5-16.0); LYMPHOCYTES # (AUTO) 1.7 10^3/uL (1.0-4.0); LYMPHOCYTES % (AUTO) 28 % (12-44); MEAN CORPUSCULAR HEMOGLOBIN 29 pg (25-34); MEAN CORPUSCULAR HGB CONC 34 g/dL (32-36); MEAN CORPUSCULAR VOLUME 86 fL (80-99); MEAN PLATELET VOLUME 9.5 fL (9.0-12.2); MONOCYTES # (AUTO) 0.6 10^3/uL (0.0-1.0); MONOCYTES % (AUTO) 9 % (0-12); NEUTROPHILS # (AUTO) 3.5 10^3/uL (1.8-7.8); NEUTROPHILS % (AUTO) 58 % (42-75); PLATELET COUNT 228 10^3/uL (130-400); WHITE BLOOD COUNT 6.1 10^3/uL (4.3-11.0)
--- NOTE | 2021-10-11 14:12 | Diagnostic Imaging Report ---
PROCEDURE: US PELVIC (NON OB) TECHNIQUE: Multiple real-time grayscale images were obtained over the pelvis in various projections transabdominally. INDICATION: Acute pelvic pain. FINDINGS: Uterus is anteverted measuring 10.3 x 5.3 x 7.4 cm. No myometrial mass is detected. Endometrium is 11 mm in thickness. Right ovary measures 3.0 x 2.3 x 3.0 cm and left ovary measures 4.9 x 3.7 x 4.6 cm. Right ovary does contain a 2.5 x 1.6 x 1.9 cm cyst. There is blood flow to the right ovary. Left ovary contains a complex mass measuring 3.5 x 2.8 x 3.2 cm, most suggestive of a hemorrhagic cyst. There is some free fluid in the posterior cul-de-sac. IMPRESSION: 1. Probable hemorrhagic cyst in the left ovary of approximately 3.5 cm in size as well as a simple cyst in the right ovary of 2.5 cm in size. No other significant abnormality is detected. Dictated by: Dictated on workstation # [id number]
[2021-10-11] MEDS ORDERED: ACHD5005 PO (15:26)
[2021-10-11 15:37] VITALS: BP 118/60
== END 2021-10-11 15:37 | disposition home or self-care (01) ==
LOC: EDUNIT# 12:08 → ER 12:11
DX: N83.292 Other ovarian cyst, left side (principal)
CPT/HCPCS: 36415; 76856; 84703; 85025

== ENCOUNTER → 2021-11-24 | Outpatient (CLI) | payer MEDICAID ==
--- NOTE | 2021-11-24 18:57 | Diagnostic Imaging Report ---
PROCEDURE: US Non-ob pelvis comp/trans. INDICATION: Cyst of ovary TECHNIQUE: Multiple real time jiménez scale sonographic images were obtained of the pelvis transabdominally and endovaginally. CORRELATION STUDY: None FINDINGS: UTERUS: 11.1 x 4.8 x 6.4 cm. ENDOMETRIUM: 11 mm. There appears to be likely a septated configuration of the uterus. There is an area of heterogeneously close to the cervix at the lower anterior uterus, 1.2 x 1.1 x 1.0 cm. Nonspecific, could be reflective of a section scar or perhaps a fibroid. RIGHT OVARY: 3.2 x 2.2 x 2.8 cm LEFT OVARY: 3.0 x 2.3 x 2.1 cm Cysts and follicles of both ovaries are present. Slightly more dominant right ovarian cyst at 2.1 x 1.4 x 1.6 cm. Somewhat asymmetric, prominent vessels in the left adnexa suggesting pelvic congestion. There is blood flow to the ovaries. No significant free pelvic fluid. IMPRESSION: 1. Cysts and/or follicles of both ovaries with dominance of the relatively simple appearing cyst 2 cm size right ovary. 2. Suspect for potential pelvic congestion syndrome on the left. 3. Area of asymmetric heterogeneity along the anterior uterus close to the cervix. Could potentially reflect a section scar if fits history. Possibility of a fibroid could also account for this. 4. Appropriate probable septate configuration of the uterus. Dictated by: Dictated on workstation # [id number]
== END ==
LOC: RAD 15:00
PROVIDERS: ATTEND Obstetrics & Gynecology
DX: N83.201 Unspecified ovarian cyst, right side (principal); N83.202 Unspecified ovarian cyst, left side
CPT/HCPCS: 76830; 76856

== ENCOUNTER 2021-12-29 05:37 | Outpatient (CLI) | payer MEDICAID ==
[~2021-12-29] VITALS: Ht 172 cm; Wt 88.6 kg
[2022-01-01] MEDS ORDERED: BUSP30TA2 PO (10:35)
[2022-01-01] MEDS ORDERED: CLON1TAB PO (10:35)
[2022-01-01] MEDS ORDERED: PHEN37.58 PO (10:35)
== END 2022-01-01 11:27 | disposition home or self-care (01) ==
LOC: PREOP 05:37
PROVIDERS: ATTEND Obstetrics & Gynecology
DX: Z01.818 Encounter for other preprocedural examination (principal)

== ENCOUNTER 2022-01-19 05:52 | Day surgery (SDC) | payer MEDICAID ==
[2022-01-19] VITALS (14 sets, daily range): BP systolic 105–124; BP diastolic 53–96
[~2022-01-19] VITALS: Ht 172.7 cm; Wt 88.6 kg
[~2022-01-19 05:52] MED LIST changes: +BUSP30TA2 PO; +CLON1TAB PO; +CLON1TAB13 PO; +PHEN37.58 PO
[2022-01-19] MEDS ORDERED: LACTATED RINGERS 1,000 ML IV PRN (06:30)
[2022-01-19] MEDS ORDERED: metroNIDAZOLE 500MG/100ML IVPB 100 ML IV ONE (06:30)
[2022-01-19] MEDS ORDERED: ceFAZolin 2 GM IV Premixed 50 ML IV ONE (06:30)
[2022-01-19] MEDS: LACTATED RINGERS 1,000 ML IV PRN ×2 (06:35→07:50)
[2022-01-19] MEDS ORDERED: fentaNYL INJ 100 MCG/2 ML AMP IV ONE (06:45)
[2022-01-19] MEDS ORDERED: MIDAZOLAM 2 MG/2 ML (VERSED) VIAL IV ONE (06:45)
[2022-01-19 06:55] LABS: BASOPHILS % (AUTO) 0 % (0-10); EOSINOPHILS # (AUTO) 0.1 10^3/uL (0.0-0.3); EOSINOPHILS % (AUTO) 1 % (0-10); HEMATOCRIT 43 % (35-52); HEMOGLOBIN 14.6 g/dL (11.5-16.0); LYMPHOCYTES # (AUTO) 1.1 10^3/uL (1.0-4.0); LYMPHOCYTES % (AUTO) 17 % (12-44); MEAN CORPUSCULAR HEMOGLOBIN 29 pg (25-34); MEAN CORPUSCULAR HGB CONC 34 g/dL (32-36); MEAN CORPUSCULAR VOLUME 84 fL (80-99); MONOCYTES # (AUTO) 0.4 10^3/uL (0.0-1.0); MONOCYTES % (AUTO) 6 % (0-12); NEUTROPHILS # (AUTO) 5.2 10^3/uL (1.8-7.8); NEUTROPHILS % (AUTO) 76 % (42-75); PLATELET COUNT 251 10^3/uL (130-400); WHITE BLOOD COUNT 6.8 10^3/uL (4.3-11.0)
[2022-01-19] MEDS ORDERED: BUPIVACAINE 0.25% 30 ML (SENSORCAINE) VIAL ONE (06:56)
[2022-01-19] MEDS ORDERED: proPOfol 200 MG/20 ML (DIPRIVAN) VIAL IV ONE (07:04)
[2022-01-19] MEDS ORDERED: ONDANSETRON 4 MG/2 ML (SDV) Z0FRAN ONE ×2 (07:04→09:24)
[2022-01-19] MEDS ORDERED: ROCURONIUM 50 MG/5 ML (ZEMURON) VIAL IV ONE (07:04)
[2022-01-19] MEDS ORDERED: fentaNYL INJ 100 MCG/2 ML AMP ONE (07:04)
[2022-01-19] MEDS ORDERED: SEVOFLURANE (ULTANE) 15 ML INHAL SOLN ONE ×2 (07:04→08:30)
[2022-01-19] MEDS ORDERED: LIDOCAINE PF 2% 5 ML (XYLOCAINE) VIAL ONE (07:04)
[2022-01-19] MEDS ORDERED: MIDAZOLAM 2 MG/2 ML (VERSED) VIAL ONE (07:05)
--- NOTE | 2022-01-19 07:21 | Progress Note-Pre Operative ---
Pre-Operative Progress Note Date of Available H&P: Jan 19, 2022 Date H&P Reviewed: Jan 19, 2022 Time H&P Reviewed: 07:21 History & Physical: H&P Reviewed, Patient Examed, No changes noted Changes from last HP none Pre-Operative Diagnosis: AUB, Fibroid uterus ANTHONY MOREIRA DO Jan 19, 2022 07:21
--- NOTE | 2022-01-19 07:27 | Discharge Inst-Women's Service ---
Discharge Inst-Women's Serv Depart Medication/Instructions New, Converted or Re-Newed RX: Transmitted to Pharmacy Final Diagnosis POD 0 RATLH Problems Reviewed?: Yes Consults/Follow Up Additional Follow Up: Yes Orders/Referrals Dr. Tompkins in 7-10 days. and in 8 weeks Activity Activity: Activity as Tolerated Driving Instructions: No Driving for 1 Week NO SMOKING: NO SMOKING Nothing Inside Vagina: No Douching, No [place], No Tampons Diet Discharge Diet: No Restrictions Symptoms to Report to : Bleeding Excessive, Pain Increased, Fever Over 101 Degrees F, Vaginal Bleeding Increase, Questions/Concerns For Any Problems or Questions: Contact Your Physician Skin/Wound Care Infection Signs and Symptoms: Increased Redness, Foul Odor of Wound, Increased Drainage, Skin Itchy or Has a Rash, Increased Swelling, Temperature Above 101 F Operative Area Clean and Dry: Keep Incision Clean/Dry Stitches/Deven/Dermabond: Dermabond, Care of Stitches Bathing Instructions: ANTHONY Wilhelm DO Jan 19, 2022 07:27
[2022-01-19] MEDS ORDERED: DOCU100C37 PO (07:28)
[2022-01-19] MEDS ORDERED: IBUP-844 PO (07:28)
[2022-01-19] MEDS ORDERED: SIME80TA16 PO (07:28)
[2022-01-19] MEDS ORDERED: HYDR-34 PO (07:28)
[2022-01-19] MEDS ORDERED: CEPACOL SORE THROAT-COUGH LOZENGE MM PRN (07:30)
[2022-01-19] MEDS ORDERED: ZOLPIDEM 5 MG (AMBIEN) TAB PO PRN (07:30)
[2022-01-19] MEDS ORDERED: ANTACID SUSP 30 ML UDC (MYLANTA) PO PRN (07:30)
[2022-01-19] MEDS ORDERED: ONDANSETRON 4 MG/2 ML (SDV) Z0FRAN IV PRN (07:30)
[2022-01-19] MEDS ORDERED: GLYCOPYRROLATE 0.2 MG/ML (ROBINUL) 2 ML VIAL ONE (08:50)
[2022-01-19] MEDS ORDERED: NEOSTIGMINE (BLOXIVERZ ) 1 MG/1ML 10 ML VIAL ONE (08:50)
--- NOTE | 2022-01-19 09:08 | Anesthesia-General Post-Op ---
General Patient Condition Mental Status/LOC: Same as Preop Cardiovascular: Satisfactory Nausea/Vomiting: Absent Respiratory: Satisfactory Pain: Controlled Complications: Absent Post Op Complications Complications None Follow Up Care/Instructions Patient Instructions None needed. Anesthesia/Patient Condition Patient Condition Patient is doing well, no complaints, stable vital signs, no apparent adverse anesthesia problems. No complications reported per nursing. SIMONE NAVA CRNA Jan 19, 2022 09:08
[2022-01-19] MEDS ORDERED: KETOROLAC 30 MG/ML VIAL ONE (09:12)
[2022-01-19] MEDS ORDERED: MEPERIDINE (DEMEROL) INJ 50 MG/ML IVP ONE (09:15)
[2022-01-19] MEDS ORDERED: ONDANSETRON 4 MG/2 ML (SDV) Z0FRAN IVP PRN (09:15)
[2022-01-19] MEDS ORDERED: KETOROLAC 30 MG/ML VIAL IVP ONE (09:15)
[2022-01-19] MEDS ORDERED: HYDROmorphone 2 MG/ML VIAL (DILAUDID) IV ONE (09:15)
[2022-01-19] MEDS ORDERED: morphine INJ 10 MG/ML 1ML (SYR OR VIAL) IVP ONE (09:15)
[2022-01-19] MEDS ORDERED: MEPERIDINE (DEMEROL) INJ 50 MG/ML ONE (09:24)
[2022-01-19] MEDS: LACTATED RINGERS 1,000 ML IV SCH ×2 (09:40→17:34)
[2022-01-19] MEDS: HYDROcodone/APAP 7.5 MG/325 MG (LORTAB, LORCET PLUS) TABLET PO PRN ×2 (12:15→18:30)
--- NOTE | 2022-01-19 13:42 | OPERATIVE REPORT ---
DATE OF SERVICE: PREOPERATIVE DIAGNOSES: 1. A 36-year-old female with abnormal uterine bleeding. 2. Fibroid uterus. 3. Chronic pelvic pain. POSTOPERATIVE DIAGNOSES: 1. A 36-year-old female with abnormal uterine bleeding. 2. Fibroid uterus. 3. Chronic pelvic pain. PROCEDURE: Robotic-assisted total laparoscopic hysterectomy. SURGEON: Prakash Tompkins DO SALES ORDER CLERK: Nena Gomez DNP, was necessary for manipulation and retraction throughout the procedure. ANESTHESIA: General endotracheal. ESTIMATED BLOOD LOSS: 50 mL. URINE OUTPUT: 50 mL clear at the end of the procedure. FLUIDS: 1800 mL lactated Ringer's solution. FINDINGS: A bulky and hyperemic-appearing uterus with absence of bilateral fallopian tubes, grossly normal appearing bilateral ovaries. SPECIMEN SENT: Uterus and cervix. INDICATIONS FOR PROCEDURE: This 36-year-old female was a patient who sought care in my office for ongoing issues with heavy abnormal bleeding as well as chronic pelvic pain. The patient had an ultrasound, which revealed what appeared to be a submucosal fibroid on ultrasound. She had failed all conservative measures that we had discussed. The patient was wishing to proceed with more definitive measure of hysterectomy. Risks of the procedure were discussed with the patient in detail including risk of bleeding, infection, damage to surrounding structures including, but not limited to bowel, bladder, ureter, kidneys, possible need for reoperation, postoperative complications that may occur, risk from recovery time frame, risk from anesthesia and even . After everything was discussed with the patient in detail, consent was obtained in the preoperative area and the patient was taken to the operating room. OPERATIVE REPORT IN DETAIL: Once in the operating room, general anesthesia was found to be adequate. She was placed in the dorsal lithotomy position, prepped and draped in normal sterile fashion where a timeout was performed. Mina catheter was placed using sterile technique. A weighted speculum inserted into the patient's vagina. A 0 Vicryl suture was then placed in the anterior lip of the cervix, which was using my retraction point. I then gently sound the uterine cavity, depth was found to be 8 cm. I then gently dilated the cervix using Hanks dilators to maximum dilatation approximately 5 mm, at which point I selected a RITCHIE uterine manipulator with an 8 cm tip and a 3.5 cm colpotomy ring. Then manipulator tip was advanced into the uterus with the balloon was deployed and the colpotomy ring was advanced around the vaginal fornix. I then removed all the other instruments from the patient's vagina, performed change of gloves, turned my attention to the abdomen where I introduced the Veress needle subcostally at the midclavicular line on the left until intraperitoneal placement was confirmed using saline drop test. An opening pressure of 4 mmHg was noted. I proceeded to max pressure of 15 mmHg using CO2 gas. At that point, I made an infraumbilical incision after infiltrating the skin using 0.25% Marcaine. This is an 8 mm incision. I then directed an 8 mm blunt laparoscopic da Latasha camera trocar through the incision until intraperitoneal placement was confirmed using the laparoscope. There was no evidence of damage upon my entry site. A brief scan of the upper abdominal anatomy appears to be grossly normal. There was no evidence of damage upon my Veress needle entry site as well and the Veress was removed at that point. I then had the patient placed in steep Trendelenburg where I am able to visualize all my pelvic anatomy as defined in my findings above. I placed two lateral trocars both 8 cm lateral to my infraumbilical trocar. They are both 8 mm incisions. The skin was infiltrated using 0.25% Marcaine and incisions were made with a knife and trocars were placed under direct visualization of the laparoscope. Once both these trocars were in place, I bring the da Latasha robot and docked in appropriate fashion. Starting with the SynchroSeal device in my left hand and monopolar tigist in the right hand, I took my place at the operative console and performed the following dissection bilaterally. I started the uteroovarian ligament, which I sealed and transected using the SynchroSeal device. I then grasped the round ligament, which I sealed and transected using the SynchroSeal device. This allows me to grasp the entire broad ligament, which I sealed and transect down to the level of the lower uterine segment, at which point I the anterior and posterior leaflets of the broad ligament. Anterior leaflet was taken around the anterior vaginal fornix. Posterior leaflets was taken around the posterior vaginal fornix. This allows me to skeletonize the uterine vessels laterally, which I sealed and transected using the SynchroSeal device. I then created a colpotomy at 12 o'clock position using monopolar tigist and took this circumferentially around the vaginal fornix amputating the cervix away from the vagina. The entire specimen was then removed through the vagina. I then closed the vaginal cuff using 2-0 V-Loc in a running fashion, colposuspending the lateral margins to the uterosacral ligaments. After which, there was no active bleeding noted from any of my dissection planes. I then undocked the da Latasha robot and proceeded with remainder of the case laparoscopically. I copiously irrigated the pelvis using normal saline. Once again, there was no active bleeding noted from any of my dissection planes. There was some residual small amount of bleeding noted from the left vascular pedicle. It is cauterized using a LigaSure device. Bilateral ureters are identified and found to be clear of my dissection planes. I then covered all planes of dissection using Surgiflo hemostatic agent to ensure excellent postoperative hemostasis. I then had the patient taken out of steep Trendelenburg where I removed the lateral trocars under direct visualization of the laparoscope. The infraumbilical trocars left in place to release insufflation and to introduce 10 mL of 0.25% Marcaine into peritoneal cavity for postoperative pain management. I then removed this trocar as well. The skin reapproximated using 4-0 Monocryl in interrupted subcuticular stitches. Dermabond was applied to incision and Band-Aids were placed over the incisions as well. Mina catheter was left in place. The patient tolerated the procedure well and sent to recovery area in stable condition. Lap and sponge counts were correct at the end of the procedure. Instrument counts correct as well. Two grams of Ancef, 500 mg of Flagyl were given preoperatively for infection prophylaxis. Job ID: [id number] DocumentID: [id number] Dictated Date: 01/19/2022 09:09:53 Contestant Coordinator Date: 01/19/2022 13:41:49 Dictated By: DO MAGDI BYRD
[2022-01-19] MEDS ORDERED: ACETAMINOPHEN 500 MG TAB (TYLENOL) PO PRN (14:30)
[2022-01-19] MEDS: KETOROLAC 30 MG/ML VIAL IVP PRN ×2 (16:59→23:49)
[2022-01-19] MEDS: SIMETHICONE 80 MG (MYLICON) CHEW PO PRN (19:31)
[2022-01-19] MEDS: DOCUSATE SODIUM 100 MG (COLACE) CAP PO PRN (22:18)
[2022-01-20] MEDS: SIMETHICONE 80 MG (MYLICON) CHEW PO PRN ×2 (04:29→08:37)
[2022-01-20 04:42] VITALS: BP 107/55
[2022-01-20] MEDS: KETOROLAC 30 MG/ML VIAL IVP PRN (05:21)
[2022-01-20] MEDS: HYDROcodone/APAP 7.5 MG/325 MG (LORTAB, LORCET PLUS) TABLET PO PRN ×2 (05:21→10:51)
[2022-01-20 08:20] VITALS: BP 119/62
[2022-01-20] MEDS: DOCUSATE SODIUM 100 MG (COLACE) CAP PO PRN (08:37)
[2022-01-20 11:40] VITALS: BP 119/62
[2022-01-24] MEDS ORDERED: IBUPROFEN 600 MG (MOTRIN) TAB PO SCH (12:00)
== END 2022-01-20 11:40 | disposition home or self-care (01) ==
LOC: SDC 05:52 → WS 10:05 → SDC 01-20 11:40
PROVIDERS: ATTEND Obstetrics & Gynecology
DX: N88.8 Other specified noninflammatory disorders of cervix uteri (principal); N73.6 Female pelvic peritoneal adhesions (postinfective); D25.9 Leiomyoma of uterus, unspecified; G89.29 Other chronic pain
CPT/HCPCS: 36415; 84703; 85025; 86850; 86900; 86901; 87081; 94664